=== PATIENT | female | born 1945 | race Caucasian/White ===

== ENCOUNTER → 2020-09-10 13:24 | Outpatient (BNVA) | payer MEDICARE, SELFPAY | PROVIDERS: PCP Internal Medicine; Visit Provider Anesthesiology | DX: M96.1 Postlaminectomy syndrome, not elsewhere classified (principal); M47.816 Spondylosis without myelopathy or radiculopathy, lumbar region; M51.36 Other intervertebral disc degeneration, lumbar region | CPT/HCPCS: 99212 ==

== ENCOUNTER → 2020-09-11 13:12 | Outpatient (BNVA) | payer MEDICARE, SELFPAY | PROVIDERS: PCP Internal Medicine; Referring Provider Internal Medicine; Visit Provider Nurse Practitioner Gerontology | DX: E11.9 Type 2 diabetes mellitus without complications (principal); I10 Essential (primary) hypertension; E78.5 Hyperlipidemia, unspecified; E66.9 Obesity, unspecified | CPT/HCPCS: 99212; Q3014 ==

== ENCOUNTER 2020-09-15 12:15 | Emergency (ER) | payer MEDICARE, SELFPAY ==
--- NOTE | 2020-09-15 13:35 | PC.NURSE ---
pt and family states that pt has an md appt at 1400 and they are leaving.
== END 2020-09-15 14:00 | disposition left against medical advice (07) ==
PROVIDERS: Emergency Provider Emergency Medicine; PCP Internal Medicine
DX: R11.10 Vomiting, unspecified (principal)
CPT/HCPCS: 99281

== ENCOUNTER → 2020-09-15 13:47 | Outpatient (REF) | payer MEDICARE, SELFPAY ==
--- NOTE | 2020-09-15 14:14 | CA_ITS ---
Transthoracic Echocardiogram Patient (Last, First, Middle): Jasmin Whitfield E Gender: Female Date of : 1945 Age: 74 Procedure Date: 09/15/2020 Procedure Type: Transthoracic Echocardiogram Location: OP Height: 149.86 cm Weight: 85.73 kg BSA: 1.80 m2 Heart Rate: bpm BP: 111 / 64 mmHg Staffing Rn: GAVIN Referring MD: Raffy Sorensen MD Product Lister: Louis Leahy MD Symptoms: NONRHEMATIC AORTIC VALVE STENOSIS Study Quality: Good ECG Rhythm: Sinus Conclusions: - 1. Normal LV systolic function with mild LVH with impaired relaxation filling pattern with increased filling pressures 2. Mildly dilated left atrium 3. Moderate to severe aortic stenosis with mean gradient of 26 mm Hg, underestimated compared to prior study 4. Severe mitral calcification 5. Normal RV systolic pressure 6. No pericardial effusion Findings Left Ventricle Normal left ventricular size and systolic function. There is mildly increased left ventricular wall thickness. The visually estimated ejection fraction is between 60-65%. Spectral Doppler is indicative of an impaired relaxation filling pattern. Elevated filling pressures. E/E prime ratio is >15, consistent with elevated filling pressures. Right Ventricle Normal right ventricular cavity size and systolic function. Atria The left atrium is mildly dilated. There is no evidence of interatrial shunt. The right atrium is normal in size. Aortic Valve There is mild calcification of the aortic valve. There is moderate thickening of the aortic valve. There is moderate to severe aortic valve stenosis. The mean gradient is 27 mmHg. The aortic valve area is 1.19 cm2. There is mild aortic valve regurgitation. Mitral Valve There is moderate anterior and posterior mitral leaflet thickening. There is severe mitral annular calcification. There is trace mitral valve regurgitation. There is no mitral valve stenosis. Pulmonic Valve The pulmonic valve was not well visualized. There is trace pulmonic valve regurgitation. Tricuspid Valve Normal tricuspid valve structure. There is mild tricuspid valve regurgitation. The right ventricular systolic pressure is normal. There is no evidence of pulmonary hypertension. Great Vessels All visible segments of the aorta are normal in size. The pulmonary artery was not well visualized. Venous The inferior vena cava is normal in size and collapses greater than 50% with inspiration. Pericardium/Pleural There is no evidence of pericardial effusion. Prior Study Comparison No significant change compared to prior study dated: 04/16/2020. Measurements 2D Linear Measurements IVSd: 1.24 0.6-0.9/0.6-1.0 cm LVIDd: 4.52 3.9-5.3/4.2-5.9 cm LVIDd Index: 2.51 2.4-3.2/2.2-3.1 cm/m2 LVIDs: 2.97 2.0-3.6 cm LVPWd: 1.22 0.7-1.1 cm Ao Root: 2.80 2.1-3.5 cm LA Diam: 3.70 2.7-3.8/3.0-4.0 cm LAIDs Index: 2.06 1.5-2.3 cm/m2 LV Mass: 257.63 67-162/88-224 g LV Mass Index: 143.13 43-95/49-115 g/m2 LVOT Diam: 2.00 3.0+(-)1.3 cm 2D Systolic Function EF 4C: 66.10 >55% Mitral Valve MV Pk E: 1.09 MV PK A: 1.34 MV Decel Time: 254.00 E/A: 0.80 E'Lateral: 7.54 E'Medial: 6.38 E/E' Med: 17.10 E/E' Lat: 14.50 PHT: 74.00 MVA PHT: 2.97 Decel [place]: 4.29 Aortic Valve AoV Pk Bimal: 3.75 AoV Mn Bimal: 2.37 AoV VTI: 0.83 AoV Pk Grad: 56.00 Aov Mn Grad: 27.00 EDDIE Cont.VTI: 1.19 AI Pk Bimal: 4.17 AI [place]: 2.55 LVOT LVOT Pk Bimal: 1.32 LVOT Mn Bimal: 0.90 LVOT VTI: 0.34 LVOT Pk Grad: 7.00 LVOT Mn Grad: 4.00 LVOT Diam: 2.00 LVOT Area: 3.14 Diastolic Function MV Pk E: 1.09 MV Pk A: 1.34 E/A: 0.80 E'Medial: 6.38 E/E' Med: 17.10 E' Laterial: 7.54 E/E' Lat: 14.50 Tricuspid Valve TR Pk Bimal: 2.29 TR Pk Grad: 29.00 RA Press: 3.00 RVSP: 32.00 Great Vessels Aorta Ao Root-2D: 2.80 2.0-3.7 cm Ao Asc: 3.10 2.1-3.4 cm Updated in Other Vendor System with Status of Final Louis Leahy MD electronically signed on 09/16/2020 11:37:35 AM with status of Final
[2020-09-15 15:01] LABS: Estimated Average Glucose 143 mg/dL; Hemoglobin A1c % 6.6 %
[2020-09-22 19:09] LABS: Fructosamine 275 umol/L (205-285)
== END ==
LOC: HO.CARD 13:47
PROVIDERS: Absent Provider Nurse Practitioner Gerontology; PCP Internal Medicine; Visit Provider Internal Medicine
DX: E11.9 Type 2 diabetes mellitus without complications (principal); I35.0 Nonrheumatic aortic (valve) stenosis
CPT/HCPCS: 82985; 83036; 93306

== ENCOUNTER → 2020-10-22 10:14 | Outpatient (BNVA) | payer MEDICARE, SELFPAY | PROVIDERS: PCP Internal Medicine; Visit Provider Nurse Practitioner | DX: K90.89 Other intestinal malabsorption (principal); K63.5 Polyp of colon; K62.5 Hemorrhage of anus and rectum | CPT/HCPCS: Q3014 ==

== ENCOUNTER → 2020-11-05 13:39 | Outpatient (BNVA) | payer MEDICARE, SELFPAY | PROVIDERS: PCP Internal Medicine; Visit Provider Internal Medicine | DX: R07.2 Precordial pain (principal); I35.0 Nonrheumatic aortic (valve) stenosis; I10 Essential (primary) hypertension; E11.9 Type 2 diabetes mellitus without complications | CPT/HCPCS: 93005; 99212 ==

== ENCOUNTER → 2020-11-19 09:59 | Outpatient (REF) | payer MEDICARE, SELFPAY ==
--- NOTE | 2020-11-19 | NM_ITS ---
Lexiscan Myocardial perfusion study Indication: Chest pain, obesity, diabetes, hypertension, assess for coronary disease and ischemia Technique: The patient was brought in for a Lexiscan perfusion study on 11/19/2020 and was injected 0.4 mg of Lexiscan intravenously. Within a minute of this injection 30 mCi of sestamibi was given intravenously. Images were obtained using the SPECT gamma camera interlaced with the gating device. Images were obtained in supine position. Resting perfusion study was performed on 11/20/2020. Patient was administered 30 mCi of sestamibi intravenously at rest. Images were then obtained in supine position. Total DLP 105mGy-cm. Images were processed with the software and compared side to side in short axis, horizontal long axis and vertical long axis views. Findings: Raw acquisition was reviewed. The stress perfusion study showed no significant perfusion abnormality. Both uncorrected as well as CT attenuation corrected images were reviewed. The gated study shows normal LV systolic function with calculated LVEF of 71%. LV cavity is normal in size. The gated study shows normal wall thickening and contraction of segments. Resting study shows no significant perfusion abnormality. Gating at rest reveals normal wall motion with ejection fraction at 69%. The findings are consistent with no reversible or fixed perfusion abnormality. NM/NM yang perf SPECT rest & str Impression: 1. Myocardial perfusion imaging study shows likely normal myocardial perfusion. No definitive evidence of any ischemia or infarction. 2. Gated LVEF is 71% during stress and 69% during rest. 3. Transient ischemic dilatation not present. EKG component of the test reported separately.
--- NOTE | 2020-11-19 10:03 | CA_ITS ---
Acquisition Time: 2020-11-19 10:26:01 Total Exercise Time: 00:02:00 Test Indications: Dyspnea Medications: SEE H Protocol: LEXISCAN Max HR: 115 BPM 80% of Pred: 143 BPM Max BP: 128/060 mmHG Max Work Load: 1.0 METS Pharmacological stress test using Lexiscan, while sitting and kicking her legs. Pt tolerated well, denies any anginal sx. SX of SOB reversed with Aminophyline. EKG without any arrhythmias, non-diagnostic for ischemia. Nuclear images to follow. Normotensive response to medication. Test reviewed with Dr. Sorensen. Referred By: Raffy Sorensen Overread By: Toby Brooks
== END ==
LOC: HO.CARD 09:59
PROVIDERS: PCP Internal Medicine; Visit Provider Internal Medicine
DX: R07.2 Precordial pain (principal); I20.9 Angina pectoris, unspecified
CPT/HCPCS: 78452; 93017; A9500; J0280; J2785

== ENCOUNTER 2020-11-27 15:03 | Outpatient (REF) | payer MEDICARE, SELFPAY ==
[2020-11-27 15:50] LABS: MANUAL DIFF FLAG NO
[2020-11-27 15:55] LABS: Basophils Percent Auto 0.4 % (0-2); Eosinophils Absolute Auto 0.2 X10*3/uL (0.0-0.4); Eosinophils Percent Auto 2.4 % (0-4); Hematocrit 33.7 % (37-47); Hemoglobin 10.4 g/dl (12.0-16.0); Imm Gran Abs Auto 0.03 X10*3/uL (0.00-0.03); Imm Gran Pct Auto 0.3 % (0.0-0.4); Lymphocytes Absolute Auto 1.9 X10*3/uL (1.2-4.9); Lymphocytes Percent Auto 20.8 % (20-40); Mean Corpuscular HGB Conc 30.9 g/dl (31.0-35.0); Mean Corpuscular Hemoglobin 27.7 pg (27.0-33.0); Mean Corpuscular Volume 89.6 fL (80-98); Mean Platelet Volume 9.6 fL (9.4-12.3); Monocytes Absolute Auto 0.8 X10*3/uL (0.1-1.2); Monocytes Percent Auto 8.4 % (2-11); Neutrophils Absolute Auto 6.1 X10*3/uL (2.0-8.3); Neutrophils Percent Auto 67.7 % (45-73); Platelet Count 406 X10*3/uL (160-400); Red Blood Count 3.76 X10*6/uL (4.20-5.50); Red Cell Distribution Width 15.9 % (11.0-16.0)
[2020-11-27 16:06] LABS: Estimated Average Glucose 128 mg/dL; Hemoglobin A1c % 6.1 %
[2020-11-27 16:12] LABS: Calcium 9.4 mg/dL (8.4-10.2)
[2020-11-27 16:19] LABS: Alanine Aminotransferase 13 U/L (0-31); Albumin Level 4.1 g/dL (3.5-5.0); Alkaline Phosphatase 113 U/L (39-117); Anion Gap 12 (12-20); Aspartate Amino Transferase 14 U/L (5-31); Bilirubin Total 0.8 mg/dL (0.0-1.0); Blood Urea Nitrogen 20 mg/dL (9-16); Calcium 9.2 mg/dL (8.4-10.2); Carbon Dioxide 30 mmol/L (22-29); Chloride 102 mmol/L (96-108); Cholesterol 104 mg/dL; Estimated Glomerular Filt Rate 46; Glucose Fasting 166 mg/dL (60-99); HDL Cholesterol 41 mg/dL; LDL Cholesterol Calculated 38 mg/dl; Potassium 4.2 mmol/l (3.3-5.1); Sodium 140 mmol/L (135-145); Total Protein 6.7 g/dL (6.5-8.0); Triglycerides 125 mg/dL
[2020-11-27 16:28] LABS: Creatinine Urine 121.22 mg/dL; Microalbum/Creatinine Ratio Ur 12.3 ug/mg cr
== END 2020-11-27 15:04 | disposition home or self-care (01) ==
LOC: HO.LAB 15:03
PROVIDERS: Absent Provider Nurse Practitioner Family; PCP Internal Medicine; Visit Provider Internal Medicine Hypertension Specialist
DX: Z00.00 Encounter for general adult medical examination without abnormal findings (principal); I10 Essential (primary) hypertension; E11.9 Type 2 diabetes mellitus without complications; E78.5 Hyperlipidemia, unspecified
CPT/HCPCS: 36415; 80053; 80061; 82043; 82310; 83036; 85025

== ENCOUNTER → 2020-12-03 13:51 | Outpatient (BNVA) | payer MEDICARE, SELFPAY | PROVIDERS: PCP Internal Medicine; Visit Provider Nurse Practitioner | DX: Z76.89 Persons encountering health services in other specified circumstances (principal) | CPT/HCPCS: Q3014 ==

== ENCOUNTER → 2020-12-10 13:30 | Outpatient (BNVA) | payer MEDICARE, SELFPAY | PROVIDERS: PCP Internal Medicine; Visit Provider Anesthesiology | DX: M96.1 Postlaminectomy syndrome, not elsewhere classified (principal); M47.816 Spondylosis without myelopathy or radiculopathy, lumbar region; M51.36 Other intervertebral disc degeneration, lumbar region | CPT/HCPCS: 99212 ==

== ENCOUNTER → 2020-12-26 13:33 | Outpatient (BNVA) | payer MEDICARE, SELFPAY | PROVIDERS: PCP Internal Medicine; Visit Provider Nurse Practitioner | DX: Z76.89 Persons encountering health services in other specified circumstances (principal) | CPT/HCPCS: Q3014 ==

== ENCOUNTER → 2021-01-30 10:53 | Outpatient (BNVA) | payer MEDICARE, SELFPAY | PROVIDERS: PCP Internal Medicine; Visit Provider Nurse Practitioner | DX: R19.01 Right upper quadrant abdominal swelling, mass and lump (principal); K21.9 Gastro-esophageal reflux disease without esophagitis; K90.89 Other intestinal malabsorption | CPT/HCPCS: Q3014 ==

== ENCOUNTER 2021-02-12 08:49 | Outpatient (REF) | payer MEDICARE, SELFPAY ==
--- NOTE | ~2021-02-12 | US_ITS ---
EXAMINATION: US ABDOMEN COMPLETE CLINICAL INFORMATION: R19.01 - Right upper quadrant abdominal swelling, mass and lump. COMPARISON: Renal ultrasound 06/20/2018, CT abdomen and pelvis noncontrast 06/16/2018 TECHNIQUE: Real-time imaging of the abdominal viscera. FINDINGS: PANCREAS: The pancreas is obscured by bowel gas and not imaged. ABDOMINAL AORTA: The bowel gas obscures the distal abdominal aorta and portion of mid abdominal aorta. INFERIOR VENA CAVA: Visualized portions are normal. LIVER: Liver is normal in size and smooth in contour. The hepatic parenchymal echogenicity is mildly increased consistent with hepatic steatosis. There is no hepatic parenchymal lesion or intrahepatic ductal dilatation. Color Doppler shows portal flow towards the liver. GALLBLADDER: Surgically absent. COMMON BILE DUCT: Within limits of normal caliber for postcholecystectomy patient, 1.0 cm. No visible ductal calculus or wall thickening. RIGHT KIDNEY: Normal. No hydronephrosis. No renal calculi or focal parenchymal lesions. The kidney measures 9.8 cm in maximum dimension. LEFT KIDNEY: Normal. No hydronephrosis. No renal calculi or focal parenchymal lesions. The kidney measures 10.2 cm in maximum dimension. SPLEEN: Normal. The spleen measures 8.8 cm in maximum dimension. FREE FLUID: There is mild ascites present in the left and right lower quadrant. US/US abdomen complete IMPRESSION: 1. Mild ascites lower quadrant. 2. Prior cholecystectomy. No ductal dilatation. 3. Mild hepatic steatosis. Portal flow towards the liver. Spleen normal in size, 8.8 cm. 4. Bowel gas obscures pancreas and portions of abdominal aorta.
--- NOTE | ~2021-02-12 | XR_ITS ---
EXAMINATION: XR FOOT, RIGHT CLINICAL INFORMATION: Pain in the right toes COMPARISON: None TECHNIQUE: AP, lateral, and oblique views of the right foot. FINDINGS: Osteopenia. No fracture or dislocation. There is significant joint space narrowing at the first metatarsophalangeal joint with flattening of the metatarsal head and base of the first digit proximal phalanx. There is osteophyte formation with sclerosis. There is prominent hypertrophic spurring of the plantar aponeurosis and Achilles insertion to the calcaneus. No ankle joint effusion. Vascular calcifications are noted. XR/XR foot RT 2V IMPRESSION: Severe degenerative changes at the first metatarsophalangeal joint.
== END 2021-02-12 08:50 | disposition home or self-care (01) ==
LOC: HO.US 08:49
PROVIDERS: Absent Provider Internal Medicine; PCP Internal Medicine; Visit Provider Physical Medicine & Rehabilitation
DX: R19.01 Right upper quadrant abdominal swelling, mass and lump (principal); M79.674 Pain in right toe(s)
CPT/HCPCS: 73620; 76700

== ENCOUNTER 2021-02-18 21:06 | Emergency (ER) | payer MEDICARE, SELFPAY ==
--- NOTE | ~2021-02-18 | CT_ITS ---
EXAMINATION: CT ABDOMEN AND PELVIS WITHOUT CONTRAST CLINICAL INFORMATION: Abdominal pain. COMPARISON: 06/16/2018. TECHNIQUE: Contiguous axial thin section helical images of the abdomen and pelvis were performed without oral or IV contrast. The data set was reformatted in the coronal and sagittal planes and reviewed on an independent workstation. DLP: 799 mGy-cm. FINDINGS: The visualized lung bases are clear. The visualized portions of the heart are unremarkable. There is a small hiatal hernia. The liver is of normal size and attenuation without focal lesions nor intrahepatic biliary ductal dilation. The patient is status post cholecystectomy. Surgical clips are present. There is a small amount of free fluid about the inferior aspect of the right lobe of the liver. The spleen, pancreas, adrenal glands are unremarkable. Both kidneys are of normal size and attenuation without hydronephrosis or nephrolithiasis. There is a moderate amount of free fluid within the left upper quadrant extending into the left paracolic gutter. There is a small amount of free fluid within the right paracolic gutter and right lower quadrant. There is neither mesenteric nor retroperitoneal lymphadenopathy. There is a fat and bowel containing ventral hernia without demonstrable obstruction. There is sigmoid diverticulosis without evidence of diverticulitis. Otherwise, unremarkable unopacified loops of small and large bowel are identified. There is a large amount of pelvic free fluid. The urinary bladder is unremarkable. Posterior to the urinary bladder, there is an oval low-attenuation focus best demonstrated on axial image 66/95 and sagittal reconstruction 74/142. This measures approximately 8.0 x 8.0 x 10.2 cm and is of fluid attenuation a smaller cystic lesion was noted in the left adnexa on the prior exam and described in the report. There is neither pelvic nor inguinal lymphadenopathy. Bone windows: Neither sclerotic nor lytic bone lesions are identified. CT/CT abdomen pelvis wo con IMPRESSION: Moderate amount of free fluid within the abdomen and a large amount of free fluid within the pelvis. In addition, there is an approximately 10.2 cm fluid attenuation cystic focus noted within the pelvis. It is uncertain as to whether this corresponds to the smaller cystic lesion identified on the prior exam. The etiology of the fluid is uncertain, though likely related to the cystic pelvic lesion. Recommendation is for correlation with pelvic MRI for further tissue characterization. Fat and bowel containing ventral hernia without associated obstruction. Diverticulosis without evidence of diverticulitis. Automated exposure control (Care Dose) Adjustment of the mA and/or kv according to patient size (this includes techniques or standardized protocols for targeted exams where dose is matched to indication / reason for exam; i.e. extremities or head).
[2021-02-18 21:48] VITALS: BP 148/66; PULSE 80; RESP 18; TEMP 36.8; O2SAT 99; BMI 36.9
--- NOTE | 2021-02-19 01:08 | ED.GENADULT ---
HPI - General Adult General Chief complaint: Abdominal Pain Stated complaint: abnormal labs Time Seen by Provider: 02/19/21 00:38 Source: patient, family and interpreter for the deaf Mode of arrival: ambulatory Limitations: other (poor historians) History of Present Illness HPI narrative: 75 yo female with abdominal pain and nausea, diarrhea with weight loss but unknown weight loss x 1 month, sent by PCP given US on 02/12 ?ascites as the reason MD complaint: abnormal US, abdominal pain Onset (ago): month(s) (1) Location: abdomen Radiation: non-radiation Severity: moderate Quality: aching, dull and constant Pain Consistency: constant Relieving factors: none Exacerbating factors: none Associated symptoms: loss of appetite, malaise and nausea/vomiting Treatments prior to arrival: none Related Data Home Medications Medication Instructions Recorded Confirmed blood sugar diagnostic #10 ea 09/11/20 01/28/21 furosemide 20 mg tablet 20 mg PO DAILY 09/11/20 01/28/21 lancets #100 ea 09/11/20 01/28/21 loperamide 2 mg capsule mg PO 09/11/20 01/28/21 sitagliptin 50 mg-metformin ER 2 tab PO BEDTIME 09/11/20 01/28/21 1,000 mg tablet,extended release 24h mp glipizide 5 mg tablet 5 mg PO DAILY 09/30/20 01/28/21 losartan 100 mg tablet 100 mg PO DAILY 09/30/20 01/28/21 simethicone 180 mg capsule 180 mg PO .Q.i.d. PRN cap 10/22/20 01/28/21 Previous Rx's Medication Instructions Recorded empagliflozin 25 mg tablet 25 mg PO QAM #30 tab 08/18/20 dulaglutide 0.75 mg/0.5 mL 0.75 mg SUBCUT QWEEK 28 Days #2 ml 09/26/20 subcutaneous pen injector ibuprofen 800 mg tablet 800 mg PO BID 15 Days #30 tab 09/30/20 cyclobenzaprine 10 mg tablet 10 mg PO BEDTIME #30 tab 11/11/20 clotrimazole-betamethasone 1 1 appl TOPICAL BID 14 Days #15 g 11/26/20 %-0.05 % topical cream sennosides 8.6 mg capsule 17.2 mg PO BEDTIME PRN 30 Days #60 12/03/20 cap hydrocortisone 2.5 % topical cream [address] BID PRN 30 Days #30 g 12/26/20 with perineal applicator methylcellulose (laxative) 500 mg 1,000 mg PO DAILY 30 Days #60 tab 12/26/20 tablet omeprazole 20 mg capsule,delayed 20 mg PO DAILY #90 cap 12/26/20 release ferrous sulfate 325 mg (65 mg 325 mg PO BID #60 tab 01/05/21 iron) tablet hydrochlorothiazide 25 mg tablet 25 mg PO QAM #90 tab 01/24/21 amlodipine 10 mg tablet 10 mg PO DAILY #90 tab 01/27/21 metoprolol succinate 100 mg 100 mg PO DAILY #90 tab 01/27/21 tablet,extended release 24 hr atorvastatin 40 mg tablet 40 mg PO BEDTIME 90 Days #90 tab 01/28/21 sucralfate 1 gram tablet 2 g PO BID 30 Days #120 tab 01/30/21 hydrocodone-acetaminophen 1 tab PO Q6H PRN #12 tab 02/19/21 ondansetron 4 mg PO Q8H PRN #20 tab 02/19/21 Allergies Allergy/AdvReac Type Severity Reaction Status Date / Time iodine Allergy Severe Anaphylaxis Verified 01/30/21 11:04 metformin Allergy Intermediate Rash Verified 01/30/21 11:04 aspirin Allergy Mild rash Verified 01/30/21 11:04 gabapentin AdvReac Intermediate visual Verified 01/30/21 11:04 distubance and sleepiness Review of Systems Review of Systems: Constitutional : pos Weight loss, No Fever, No Chills ENT/Mouth : No sore throat, No Rhinorrhea Eyes: No Swelling, No Redness Cardiovascular : No Chest Pain, No SOB, NoEdema Respiratory : No Cough, No Sputum, No Wheezing Gastrointestinal : Positive Nausea, no Vomiting, positive Diarrhea, positive abdominal Pain, No Hematochezia, No Melena Genitourinary : No Dysuria, No Urinary Frequency, No Hematuria, No Urgency Musculoskeletal : No joint pain, No Myalgias, No Joint Swelling Skin : No Skin Lesions, No rash Neuro : No Weakness, No Numbness, No Dizziness, No Headache Psych : No Anxiety/Panic, No Depression Heme/Lymph: No Bruising, No Lymphadenopathy Endocrine : No Polyuria, No Polydipsia All other systems reviewed and are negative. [facility] Past Medical History Attestation statement: The following information was validated with the patient. 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 Mother No problems noted. Paternal Grandmother Cancer Paternal Aunt Cancer Family/Other Cancer Daughter Cancer History of open heart surgery Social History Social History Household Members: None Alcohol intake: never Smoking Status: Never smoker Use of substances other than those prescribed or required for medical reasons: No Advance Directives: No Current occupational status: unemployed Physical Exam Vital Signs: Vital Signs: Last Vital Signs Temp 98.4 F 02/19/21 02:00 Pulse 77 02/19/21 02:00 Resp 16 02/19/21 02:00 BP 134/46 L 02/19/21 02:00 Pulse Ox 99 02/19/21 02:00 Body Mass Index 36.9 Appearance: Alert. Oriented X3. No acute distress. Eyes: Pupils equal, round and reactive to light. ENT: Pharynx normal. Neck: Normal inspection. Neck supple. CVS: Normal heart rate and rhythm. Pulses normal. Respiratory: No respiratory distress. Breath sounds normal. Abdomen: Soft and moderate ttp in RUQ, has midline nonmobile mass in area above umibilicus Skin: Skin warm and dry. Normal skin color. Normal skin turgor. Extremities: No lower extremity edema. No calf ttp Neuro: Oriented X 3. No motor deficit. No sensory deficit. Course Course Course Narrative: discussed with daughter and patinet about findings and offered admission - aware I am concerned for malignancy, the patient refuses admission, she wants to follow up outpatient at this time Medical Decision Making MDM Narrative Medical decision making narrative: 75 yo female with depression, GERD, DM with abdominal pain x 1 month here with upper abdominal pain nausea/diarrhea and weight loss with ?abnormal US on 02/12 at this time given her symptoms needs more of an evaluation will obtain labs, CT scan for mass, IV morphine for pain Lab Data Result diagrams: 02/19/21 01:32 02/19/21 01:32 Labs: Lab Results 02/19/21 02/19/21 02/19/21 Range/Units 01:32 01:32 01:32 WBC (4.8-10.8) X10*3/uL RBC (4.20-5.50) X10*6/uL Hgb (12.0-16.0) g/dl Hct (37-47) % MCV (80-98) fL MCH (27.0-33.0) pg MCHC (31.0-35.0) g/dl RDW (11.0-16.0) % Plt Count (160-400) X10*3/uL MPV (9.4-12.3) fL Immature Gran % (Auto) (0.0-0.4) % Neut % (Auto) (45-73) % Lymph % (Auto) (20-40) % [place] % (Auto) (2-11) % Eos % (Auto) (0-4) % Baso % (Auto) (0-2) % Lymph # (Auto) (1.2-4.9) X10*3/uL [place] # (Auto) (0.1-1.2) X10*3/uL Eos # (Auto) (0.0-0.4) X10*3/uL Baso # (Auto) (0.0-0.2) X10*3/uL Abs Immat Gran (auto) (0.00-0.03) X10*3/uL Absolute Neuts (auto) (2.0-8.3) X10*3/uL Absolute Nucleated RBC (0.0-0.012) X10*3/uL Nucleated RBC % (auto) (0.0-0.2) /100WBC PT 13.8 H (10.8-13.0) SEC INR 1.2 H (0.9-1.1) APTT 33.9 (24.1-38.0) SEC Sodium 141 (135-145) mmol/L Potassium 4.4 (3.3-5.1) mmol/L Chloride 105 (96-108) mmol/L Carbon Dioxide 22 (22-29) mmol/L Anion Gap 18 (12-20) BUN 21 H (9-16) mg/dL Creatinine 1.15 (0.5-1.4) mg/dL Estim Creat Clear Calc 39.8 Estimated GFR 46 Random Glucose 126 H (60-115) mg/dL Calcium 9.6 (8.4-10.2) mg/dL Magnesium 2.5 (1.6-2.6) mg/dL Total Bilirubin 0.9 (0.0-1.0) mg/dL Direct Bilirubin 0.3 (0.0-0.5) mg/dL AST 17 (5-31) U/L ALT 11 (0-31) U/L Alkaline Phosphatase 105 (39-117) U/L Total Protein 7.3 (6.5-8.0) g/dL Albumin 4.1 (3.5-5.0) g/dL Lipase 33 (8-78) U/L Urine Color Urine Appearance Urine pH (5.0-8.0) Ur Specific [place] (1.005-1.025) Urine Protein (NEG-TRACE) MG/DL Urine Glucose (UA) (NEG) MG/DL Urine Ketones (NEG) MG/DL Urine Blood (NEG) Urine Nitrite (NEG) Ur Leukocyte Esterase (NEG) 02/19/21 02/19/21 Range/Units 01:32 02:31 WBC 10.5 (4.8-10.8) X10*3/uL RBC 3.94 L (4.20-5.50) X10*6/uL Hgb 10.3 L (12.0-16.0) g/dl Hct 34.0 L (37-47) % MCV 86.3 (80-98) fL MCH 26.1 L (27.0-33.0) pg MCHC 30.3 L (31.0-35.0) g/dl RDW 14.6 (11.0-16.0) % Plt Count 542 H D (160-400) X10*3/uL MPV 9.8 (9.4-12.3) fL Immature Gran % (Auto) 0.4 (0.0-0.4) % Neut % (Auto) 65.6 (45-73) % Lymph % (Auto) 21.9 (20-40) % [place] % (Auto) 9.4 (2-11) % Eos % (Auto) 2.4 (0-4) % Baso % (Auto) 0.3 (0-2) % Lymph # (Auto) 2.3 (1.2-4.9) X10*3/uL [place] # (Auto) 1.0 (0.1-1.2) X10*3/uL Eos # (Auto) 0.3 (0.0-0.4) X10*3/uL Baso # (Auto) 0.0 (0.0-0.2) X10*3/uL Abs Immat Gran (auto) 0.04 H (0.00-0.03) X10*3/uL Absolute Neuts (auto) 6.9 (2.0-8.3) X10*3/uL Absolute Nucleated RBC 0.000 (0.0-0.012) X10*3/uL Nucleated RBC % (auto) 0.0 (0.0-0.2) /100WBC PT (10.8-13.0) SEC INR (0.9-1.1) APTT (24.1-38.0) SEC Sodium (135-145) mmol/L Potassium (3.3-5.1) mmol/L Chloride (96-108) mmol/L Carbon Dioxide (22-29) mmol/L Anion Gap (12-20) BUN (9-16) mg/dL Creatinine (0.5-1.4) mg/dL Estim Creat Clear Calc Estimated GFR Random Glucose (60-115) mg/dL Calcium (8.4-10.2) mg/dL Magnesium (1.6-2.6) mg/dL Total Bilirubin (0.0-1.0) mg/dL Direct Bilirubin (0.0-0.5) mg/dL AST (5-31) U/L ALT (0-31) U/L Alkaline Phosphatase (39-117) U/L Total Protein (6.5-8.0) g/dL Albumin (3.5-5.0) g/dL Lipase (8-78) U/L Urine Color YELLOW Urine Appearance CLEAR Urine pH 6.0 (5.0-8.0) Ur Specific [place] 1.020 (1.005-1.025) Urine Protein NEG (NEG-TRACE) MG/DL Urine Glucose (UA) 500 H (NEG) MG/DL Urine Ketones NEG (NEG) MG/DL Urine Blood NEG (NEG) Urine Nitrite NEG (NEG) Ur Leukocyte Esterase NEG (NEG) Discharge Plan Discharge Clinical Impression: Abdominal or pelvic swelling, mass, or lump, other specified site Patient Disposition: Home, Self-Care Instructions: Abdominal Pain (ED) Additional Instructions: return to ED for any worsening symptoms or concerns THIS IS VERY SERIOUS AND COULD BE CANCER, PLEASE SEE YOUR DOCTOR, YOU WERE OFFERED ADMISSION BUT DECLINED CT SCAN RESULTS Moderate amount of free fluid within the abdomen and a large amount of free fluid within the pelvis. In addition, there is an approximately 10.2 cm fluid attenuation cystic focus noted within the pelvis. It is uncertain as to whether this corresponds to the smaller cystic lesion identified on the prior exam. The etiology of the fluid is uncertain, though likely related to the cystic pelvic lesion. Recommendation is for correlation with pelvic MRI for further tissue characterization. Fat and bowel containing ventral hernia without associated obstruction. Diverticulosis without evidence of diverticulitis. Prescriptions: New hydrocodone-acetaminophen 5-325 mg tablet 1 tab PO Q6H PRN (Reason: pain) Qty: 12 RF: 0 ondansetron 4 mg tablet,disintegrating 4 mg PO Q8H PRN (Reason: nausea and vomiting) Qty: 20 RF: 0 No Action empagliflozin [Jardiance] 25 mg tablet 25 mg PO QAM Qty: 30 RF: 6 dulaglutide 0.75 mg/0.5 mL pen injector 0.75 mg subcut QWEEK 28 Days Qty: 2 RF: 3 cyclobenzaprine 10 mg tablet 10 mg PO BEDTIME Qty: 30 RF: 0 ferrous sulfate 325 mg (65 mg iron) tablet 325 mg PO BID Qty: 60 RF: 0 hydrochlorothiazide 25 mg tablet 25 mg PO QAM Qty: 90 RF: 1 amlodipine 10 mg tablet 10 mg PO DAILY Qty: 90 RF: 1 metoprolol succinate 100 mg tablet extended release 24 hr 100 mg PO DAILY Qty: 90 RF: 1 losartan 100 mg tablet 100 mg PO DAILY RF: 0 glipizide 5 mg tablet 5 mg PO DAILY RF: 0 ibuprofen 800 mg tablet 800 mg PO BID 15 Days Qty: 30 RF: 0 clotrimazole-betamethasone 1-0.05 % cream 1 appl topical BID 14 Days Qty: 15 RF: 0 atorvastatin 40 mg tablet 40 mg PO BEDTIME 90 Days Qty: 90 RF: 3 simethicone [Gas Relief (simethicone)] 180 mg capsule 180 mg PO .Q.i.d. PRNRF: 0 sucralfate [Carafate] 1 gram tablet 2 g PO BID 30 Days Qty: 120 RF: 6 loperamide 2 mg capsule PO RF: 0 Janumet XR 50-1,000 mg tablet, ER multiphase 24 hr 2 tab PO BEDTIME RF: 0 (DME) lancets Misc See Rx Instructions ea .ROUTE .MEDSUPPLY Qty: 100 RF: 0 (DME) OneTouch Ultra Blue Test Strip Strip See Rx Instructions ea .ROUTE DAILY Qty: 10 RF: 0 furosemide 20 mg tablet 20 mg PO DAILY RF: 0 senna 8.6 mg capsule 17.2 mg PO BEDTIME PRN (Reason: constipation) 30 Days Qty: 60 RF: 3 Citrucel 500 mg tablet 1,000 mg PO DAILY 30 Days Qty: 60 RF: 6 hydrocortisone [Anusol-HC] 2.5 % cream with perineal applicator [address] BID PRN (Reason: hemorrhoids) 30 Days Qty: 30 RF: 6 omeprazole 20 mg capsule,delayed release(DR/EC) 20 mg PO DAILY Qty: 90 RF: 6 Referrals: Nelli Richardson MD [Primary Care Provider] - 1 day Print Language: Greek
[2021-02-19] MEDS: ondansetron HCL 4 MG/2 ML VIAL IVPUSH (01:33)
[2021-02-19] MEDS: Morphine Sulfate 4 MG/ML CARTRIDGE IVPUSH (01:34)
[2021-02-19 01:46] LABS: INTERNATIONAL NORM RATIO 1.2 (0.9-1.1); Prothrombin Time 13.8 SEC (10.8-13.0)
[2021-02-19 01:49] LABS: Partial Thromboplastin Time 33.9 SEC (24.1-38.0)
[2021-02-19 02:00] VITALS: BP 134/46; PULSE 77; RESP 16; TEMP 36.9; O2SAT 99
[2021-02-19 02:03] LABS: Alanine Aminotransferase 11 U/L (0-31); Albumin Level 4.1 g/dL (3.5-5.0); Alkaline Phosphatase 105 U/L (39-117); Aspartate Amino Transferase 17 U/L (5-31); Bilirubin Direct 0.3 mg/dL (0.0-0.5); Bilirubin Total 0.9 mg/dL (0.0-1.0); Lipase 33 U/L (8-78); Magnesium 2.5 mg/dL (1.6-2.6); Total Protein 7.3 g/dL (6.5-8.0)
[2021-02-19 02:38] LABS: Anion Gap 18 (12-20); Blood Urea Nitrogen 21 mg/dL (9-16); Calcium 9.6 mg/dL (8.4-10.2); Carbon Dioxide 22 mmol/L (22-29); Chloride 105 mmol/L (96-108); Creatinine Clr Calc Pharmacy 39.8; Estimated Glomerular Filt Rate 46; Glucose Random 126 mg/dL (60-115); Potassium 4.4 mmol/L (3.3-5.1); Sodium 141 mmol/L (135-145)
[2021-02-19 02:49] LABS: Glucose Urine UA 500 MG/DL (NEG); Leukocyte Esterase Urine NEG (NEG); Nitrite Urine NEG (NEG); Urine Blood NEG (NEG); Urine Ketones NEG (NEG); Urine Protein NEG (NEG-TRACE)
[2021-02-19 02:57] LABS: Appearance Urine CLEAR; Color Urine YELLOW
[2021-02-19 03:08] LABS: Basophils Percent Auto 0.3 % (0-2); Eosinophils Absolute Auto 0.3 X10*3/uL (0.0-0.4); Eosinophils Percent Auto 2.4 % (0-4); Hemoglobin 10.3 g/dl (12.0-16.0); Imm Gran Abs Auto 0.04 X10*3/uL (0.00-0.03); Imm Gran Pct Auto 0.4 % (0.0-0.4); Lymphocytes Absolute Auto 2.3 X10*3/uL (1.2-4.9); Lymphocytes Percent Auto 21.9 % (20-40); MANUAL DIFF FLAG NO; Mean Corpuscular HGB Conc 30.3 g/dl (31.0-35.0); Mean Corpuscular Hemoglobin 26.1 pg (27.0-33.0); Mean Corpuscular Volume 86.3 fL (80-98); Mean Platelet Volume 9.8 fL (9.4-12.3); Monocytes Percent Auto 9.4 % (2-11); Neutrophils Absolute Auto 6.9 X10*3/uL (2.0-8.3); Neutrophils Percent Auto 65.6 % (45-73); Platelet Count 542 X10*3/uL (160-400); Red Blood Count 3.94 X10*6/uL (4.20-5.50); Red Cell Distribution Width 14.6 % (11.0-16.0); White Blood Count 10.5 X10*3/uL (4.8-10.8)
== END 2021-02-19 03:38 | disposition home or self-care (01) ==
PROVIDERS: Emergency Provider Emergency Medicine; PCP Internal Medicine
DX: R10.9 Unspecified abdominal pain (principal); R11.2 Nausea with vomiting, unspecified; R19.7 Diarrhea, unspecified; Z79.899 Other long term (current) drug therapy
CPT/HCPCS: 36415; 74176; 80048; 80076; 81003; 83690; 83735; 85025; 85610; 85730; 96374; 96375; 99284; J2270; J2405

== ENCOUNTER 2021-02-19 10:29 | Emergency (ER) | payer MEDICARE, SELFPAY ==
--- NOTE | ~2021-02-19 | CT_ITS ---
EXAMINATION: CT CHEST WITHOUT CONTRAST CLINICAL INFORMATION: Abdominal pain. Abdominal and pelvic ascites, possible pelvic mass. Assess for intrathoracic disease/mass. COMPARISON: CT abdomen and pelvis 02/19/2021, ultrasound abdomen 02/12/2021. TECHNIQUE: Multidetector volumetric CT imaging of the chest is performed without contrast. Axial MIP volume rendering provided. Sagittal and coronal reformatted images were obtained. This CT examination was performed using dose optimization techniques as appropriate, variously including the following: *Automated exposure control *Adjustment of mA and/or kV according to patient size (this includes techniques or standardized protocols for targeted exams where dose is matched to indication/reason for exam; i.e. extremities or head) *Use of iterative reconstruction technique DLP: 344 mGy-cm FINDINGS: LUNGS: The central airways are clear and there is no endobronchial lesion or bronchiectasis. There is no lobar or segmental airspace consolidation or infectious groundglass opacities. There is no mass. There are a few scattered tiny nodules under 4 mm as follows: -Left pleural-based posterior lower lobe series 6/301. -Right posterior upper lobe series 6/123. -Right posterior upper lobe series 6/139. -Right posterior lateral lower lobe series 6/282. There are also incidental fissural-based nodularity likely intraparenchymal nodes under 4 mm on the right, series 6 images 166, 206, and 233. MEDIASTINUM: No hilar or mediastinal mass or adenopathy. Coronary artery atherosclerotic calcifications. No pericardial effusion. PLEURA: There is no pleural effusion. No pleural mass or thickening. AXILLA: No lymphadenopathy. UPPER ABDOMEN: Upper abdominal ascites. Prior cholecystectomy. OSSEOUS STRUCTURES: Unremarkable. CT/CT chest wo con IMPRESSION: 1. Scattered small pulmonary nodularity under 4 mm. No lymphadenopathy or effusion. 2. If there is no malignancy, then Fleischner guidelines may be followed (below). Otherwise, in the presence of history malignancy, the pulmonary nodules may be reassessed again in 3 months with non-contrast CT chest. Reference: The Fleischner Society recommendations for management of incidentally detected pulmonary nodules in adults age 35 and greater are based on average nodule size and patient risk category. The recommendations do not apply to lung cancer screening, patients with immunosuppression, or patients with known primary cancer. Single solid nodule average size < 6 mm: Low Risk Patient: No routine follow-up. High Risk Patient: Optional CT at 12 months. Certain patients at high risk with suspicious nodule morphology, upper lobe location, or both may warrant 12-month follow-up.
[2021-02-19 11:04] VITALS: BP 132/59; PULSE 75; RESP 18; TEMP 36.8; O2SAT 97; BMI 36.3
[2021-02-19 12:51] VITALS: BP 122/57; PULSE 70; RESP 16; TEMP 36.7
--- NOTE | 2021-02-19 13:05 | PC.NURSE ---
PT SEEN IN THE ER EARLIER THIS MORNING. REPORTS GI DRSuresh TOLD HER TO COME BACK TO THE HOSPITAL FOR FURTHER EVALUATION. PT ALERT AND ORIENTED, REPORTS ABDOMINAL PAIN THROUGHOUT WITH MORE TENDERNESS IN RIGHT LOWER QUADRANT, AND FEELINGS OF FULLNESS/BLOATING. BS ACTIVE X4. PT REPORTS NOT EATING/DRINKING X3DAYS AND HAVING WATERY STOOLS EACH TIME SHE HAS A BM. PT SEEN BY PA. KUMAR AT BEDSIDE. PLAN FOR ADMISSION
--- NOTE | 2021-02-19 13:08 | ED.ABDPAIN ---
HPI - Abdominal Pain General Chief Complaint: Abdominal Pain Stated Complaint: abd pain Time Seen by Provider: 02/19/21 12:36 Source: patient Mode of arrival: ambulatory History of Present Illness HPI narrative: 75-year-old female with a past medical history diabetes, depression, HTN, seen in our ED last night for abdominal pain/distension, nausea/diarrhea x1 mos with newly diagnosed abdomino-pelvic mass with ascites seen on CT abdomen pelvis last night presenting to the ED sent in by GI/PCP for further evaluation/workup. Admits symptoms unchanged from last night. Denies fever, chills, vomiting, dysuria/hematuria, CP/SOB MD elicited complaint: abdominal pain Related Data Home Medications Medication Instructions Recorded Confirmed blood sugar diagnostic #10 ea 09/11/20 01/28/21 furosemide 20 mg tablet 20 mg PO DAILY 09/11/20 01/28/21 lancets #100 ea 09/11/20 01/28/21 loperamide 2 mg capsule mg PO 09/11/20 01/28/21 sitagliptin 50 mg-metformin ER 2 tab PO BEDTIME 09/11/20 01/28/21 1,000 mg tablet,extended release 24h mp glipizide 5 mg tablet 5 mg PO DAILY 09/30/20 01/28/21 losartan 100 mg tablet 100 mg PO DAILY 09/30/20 01/28/21 simethicone 180 mg capsule 180 mg PO .Q.i.d. PRN cap 10/22/20 01/28/21 Previous Rx's Medication Instructions Recorded empagliflozin 25 mg tablet 25 mg PO QAM #30 tab 08/18/20 dulaglutide 0.75 mg/0.5 mL 0.75 mg SUBCUT QWEEK 28 Days #2 ml 09/26/20 subcutaneous pen injector ibuprofen 800 mg tablet 800 mg PO BID 15 Days #30 tab 09/30/20 cyclobenzaprine 10 mg tablet 10 mg PO BEDTIME #30 tab 11/11/20 clotrimazole-betamethasone 1 1 appl TOPICAL BID 14 Days #15 g 11/26/20 %-0.05 % topical cream sennosides 8.6 mg capsule 17.2 mg PO BEDTIME PRN 30 Days #60 12/03/20 cap hydrocortisone 2.5 % topical cream 1 appl MD BID PRN 30 Days #30 g 12/26/20 with perineal applicator methylcellulose (laxative) 500 mg 1,000 mg PO DAILY 30 Days #60 tab 12/26/20 tablet omeprazole 20 mg capsule,delayed 20 mg PO DAILY #90 cap 12/26/20 release ferrous sulfate 325 mg (65 mg 325 mg PO BID #60 tab 01/05/21 iron) tablet hydrochlorothiazide 25 mg tablet 25 mg PO QAM #90 tab 01/24/21 amlodipine 10 mg tablet 10 mg PO DAILY #90 tab 01/27/21 metoprolol succinate 100 mg 100 mg PO DAILY #90 tab 01/27/21 tablet,extended release 24 hr atorvastatin 40 mg tablet 40 mg PO BEDTIME 90 Days #90 tab 01/28/21 sucralfate 1 gram tablet 2 g PO BID 30 Days #120 tab 01/30/21 hydrocodone-acetaminophen 1 tab PO Q6H PRN #12 tab 02/19/21 ondansetron 4 mg PO Q8H PRN #20 tab 02/19/21 Allergies Allergy/AdvReac Type Severity Reaction Status Date / Time iodine Allergy Severe Anaphylaxis Verified 02/19/21 11:04 metformin Allergy Intermediate Rash Verified 02/19/21 11:04 aspirin Allergy Mild rash Verified 02/19/21 11:04 gabapentin AdvReac Intermediate visual Verified 02/19/21 11:04 distubance and sleepiness Review of Systems Review of Systems Constitutional: No Fever, No Chills Cardiovascular: No Chest Pain, No SOB Respiratory: No Cough Gastrointestinal: + Nausea, No Vomiting, + Diarrhea, No Constipation, + Abdominal pain Genitourinary: No Dysuria, No Urinary Frequency, No Hematuria Musculoskeletal: No joint pain, No Myalgias, No Joint Swelling Skin: No Skin Lesions, No rash Neuro: No Weakness, No Numbness, No Paresthesias, No Headache Yes all other systems are reviewed and are negative Physical Exam Vital Signs: Vital Signs: Last Vital Signs Temp 98.1 F 02/19/21 12:51 Pulse 71 02/19/21 14:46 Resp 16 02/19/21 14:46 BP 133/55 L 02/19/21 14:46 Pulse Ox 95 02/19/21 14:46 Body Mass Index 36.3 Const: General: cooperative, healthy appearing and no acute distress Orientation/consciousness: patient oriented x3 Limitations: no limitations HENMT: Head: Yes normal to inspection Ears: hearing grossly normal bilaterally General nose exam: Normal external nose present Face and sinus: Yes normal facial exam Eyes: General: appearance normal, both eyes and all related structures EOM: EOMs intact bilaterally Neck: Neck: Yes normal visual inspection and Yes no meningeal signs Resp: Effort & Inspection: normal respiratory effort Auscultation: no rales, no rhonchi and no wheezes Cardio: Rate: regular rate GI: Inspection: Yes normal to inspection Palpation (GI): Soft to palpation, Tenderness to palpation present (GI) (Palpable mass in right lower abdomen) in the RLQ, no guarding and not rigid : General: Yes no CVA tenderness Back/Spine/Pelvis: Back: no CVA tenderness Skin: Rashes: no rashes Wounds: no wounds Neuro: General: patient oriented x3 and no meningeal signs Gait exam (Neuro): Normal gait present Extrem: General: Yes normal to inspection, Yes no pedal edema and Yes no calf tenderness Course Course Course Narrative: -attempted to admit patient to our hospital however if this is gynecologic mass requiring Rn Licensed Practical/Onc we do not have those capabilities here, pelvic MRI recommended > however stat pelvic MRI unable to be done today, & this is deemed outpatient workup -spoke to OBGYN doctor Onelia who ordered outpatient MRI and will follow up on results, recommended adding on CA 125 level which will be drawn in the ED. Patient will then be referred to proper sub-specialist pending imaging results -Labs unchanged from this morning CT chest wo con IMPRESSION: 1. Scattered small pulmonary nodularity under 4 mm. No lymphadenopathy or effusion. 2. If there is no malignancy, then Fleischner guidelines may be followed (below). Otherwise, in the presence of history malignancy, the pulmonary nodules may be reassessed again in 3 months with non-contrast CT chest. >> results discussed with patient with director project management. Will obtain MRI outpatient and be follow-up with our OBGYN then referred to subspecialty as necessary MDM - Abdominal Pain MDM Narrative Medical decision making narrative: 75-year-old female with a past medical history diabetes, depression, HTN, seen in our ED last night for abdominal pain/distension, nausea/diarrhea x1 mos with newly diagnosed abdomino-pelvic mass with ascites seen on CT abdomen pelvis last night presenting to the ED sent in by GI/PCP for further evaluation/workup. On exam VSS, NAD/appearing, abdomen soft with right lower quadrant tenderness with palpable mass. Labs/imaging reviewed from early this morning. Will obtain repeat CBC/CMP, CT chest to rule out metastasis, and consult OBGYN Lab Data Result diagrams: 02/19/21 13:38 02/19/21 13:38 Labs: Lab Results 02/19/21 02/19/21 Range/Units 13:38 13:38 WBC 9.1 (4.8-10.8) X10*3/uL RBC 3.87 L (4.20-5.50) X10*6/uL Hgb 10.2 L (12.0-16.0) g/dl Hct 33.3 L (37-47) % MCV 86.0 (80-98) fL MCH 26.4 L (27.0-33.0) pg MCHC 30.6 L (31.0-35.0) g/dl RDW 14.7 (11.0-16.0) % Plt Count 505 H (160-400) X10*3/uL MPV 9.1 L (9.4-12.3) fL Immature Gran % (Auto) 0.3 (0.0-0.4) % Neut % (Auto) 73.1 H (45-73) % Lymph % (Auto) 15.5 L (20-40) % [place] % (Auto) 8.5 (2-11) % Eos % (Auto) 2.3 (0-4) % Baso % (Auto) 0.3 (0-2) % Lymph # (Auto) 1.4 (1.2-4.9) X10*3/uL [place] # (Auto) 0.8 (0.1-1.2) X10*3/uL Eos # (Auto) 0.2 (0.0-0.4) X10*3/uL Baso # (Auto) 0.0 (0.0-0.2) X10*3/uL Abs Immat Gran (auto) 0.03 (0.00-0.03) X10*3/uL Absolute Neuts (auto) 6.6 (2.0-8.3) X10*3/uL Absolute Nucleated RBC 0.000 (0.0-0.012) X10*3/uL Nucleated RBC % (auto) 0.0 (0.0-0.2) /100WBC Sodium 140 (135-145) mmol/L Potassium 4.5 (3.3-5.1) mmol/L Chloride 104 (96-108) mmol/L Carbon Dioxide 23 (22-29) mmol/L Anion Gap 18 (12-20) BUN 20 H (9-16) mg/dL Creatinine 1.13 (0.5-1.4) mg/dL Estim Creat Clear Calc 38.5 Estimated GFR 47 Random Glucose 107 (60-115) mg/dL Calcium 9.3 (8.4-10.2) mg/dL Discharge Plan Discharge Clinical Impression: Abdominal or pelvic swelling, mass, or lump, other specified site, Pulmonary nodules Patient Disposition: Home, Self-Care Instructions: Ascites (ED), Pulmonary Nodules (ED) Additional Instructions: You have a newly diagnosed abdominal pelvic mass which is suspected to be originating in her pelvis. You need an MRI, this will be scheduled for you, you will be contacted from [place] for scheduling. Once MRI is complete/results you will be referred to the proper subspecialists. If you develop fever, chills, nausea/vomiting, are unable to eat or drink, have persistent or worsening diarrhea or pain return to the ED Your CT showed small scattered pulmonary nodules. It is recommended these are reassess in 3 months Tiene jose masa p?lvica abdominal reci?n diagnosticada que se sospecha que se origina en medina pelvis. Necesita jose resonancia magn?gina, esto se programar? para usted, se comunicar? con usted desde [place] para programarlo. Jose vez que la resonancia magn?gina est? completa / los resultados, se lo derivar? a los subespecialistas adecuados. Si presenta fiebre, escalofr?os, n?useas / v?mitos, no puede comer ni beber, tiene diarrea persistente o que empeora o dolor, vuelva al servicio de urgencias. Medina TC mostr? han?os n?dulos pulmonares dispersos. Se recomienda que se vuelvan a evaluar en 3 meses Prescriptions: No Action empagliflozin [Jardiance] 25 mg tablet 25 mg PO QAM Qty: 30 RF: 6 dulaglutide 0.75 mg/0.5 mL pen injector 0.75 mg subcut QWEEK 28 Days Qty: 2 RF: 3 cyclobenzaprine 10 mg tablet 10 mg PO BEDTIME Qty: 30 RF: 0 ferrous sulfate 325 mg (65 mg iron) tablet 325 mg PO BID Qty: 60 RF: 0 hydrochlorothiazide 25 mg tablet 25 mg PO QAM Qty: 90 RF: 1 amlodipine 10 mg tablet 10 mg PO DAILY Qty: 90 RF: 1 metoprolol succinate 100 mg tablet extended release 24 hr 100 mg PO DAILY Qty: 90 RF: 1 hydrocodone-acetaminophen 5-325 mg tablet 1 tab PO Q6H PRN (Reason: pain) Qty: 12 RF: 0 ondansetron 4 mg tablet,disintegrating 4 mg PO Q8H PRN (Reason: nausea and vomiting) Qty: 20 RF: 0 losartan 100 mg tablet 100 mg PO DAILY RF: 0 glipizide 5 mg tablet 5 mg PO DAILY RF: 0 ibuprofen 800 mg tablet 800 mg PO BID 15 Days Qty: 30 RF: 0 clotrimazole-betamethasone 1-0.05 % cream 1 appl topical BID 14 Days Qty: 15 RF: 0 atorvastatin 40 mg tablet 40 mg PO BEDTIME 90 Days Qty: 90 RF: 3 simethicone [Gas Relief (simethicone)] 180 mg capsule 180 mg PO .Q.i.d. PRNRF: 0 sucralfate [Carafate] 1 gram tablet 2 g PO BID 30 Days Qty: 120 RF: 6 loperamide 2 mg capsule PO RF: 0 Janumet XR 50-1,000 mg tablet, ER multiphase 24 hr 2 tab PO BEDTIME RF: 0 (DME) lancets Misc See Rx Instructions ea .ROUTE .MEDSUPPLY Qty: 100 RF: 0 (DME) OneTouch Ultra Blue Test Strip Strip See Rx Instructions ea .ROUTE DAILY Qty: 10 RF: 0 furosemide 20 mg tablet 20 mg PO DAILY RF: 0 senna 8.6 mg capsule 17.2 mg PO BEDTIME PRN (Reason: constipation) 30 Days Qty: 60 RF: 3 Citrucel 500 mg tablet 1,000 mg PO DAILY 30 Days Qty: 60 RF: 6 hydrocortisone [Anusol-HC] 2.5 % cream with perineal applicator 1 appl MD BID PRN (Reason: hemorrhoids) 30 Days Qty: 30 RF: 6 omeprazole 20 mg capsule,delayed release(DR/EC) 20 mg PO DAILY Qty: 90 RF: 6 Referrals: Melissa Rousseau MD [Physician] - 2 days Print Language: Austrian [facility] Past Medical History Attestation statement: The following information was validated with the patient. 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 Mother No problems noted. Paternal Grandmother Cancer Paternal Aunt Cancer Family/Other Cancer Daughter Cancer History of open heart surgery Social History Social History Household Members: None Alcohol intake: never Smoking Status: Never smoker Use of substances other than those prescribed or required for medical reasons: No Advance Directives: No Advance Directives Information Provided: No Current occupational status: unemployed
--- NOTE | 2021-02-19 13:10 | ECG_ITS ---
Test Reason : ABD PAIN Blood Pressure : / mmHG Vent. Rate : 069 BPM Atrial Rate : 069 BPM P-R Int : 192 ms QRS Dur : 086 ms QT Int : 420 ms P-R-T Axes : 063 003 048 degrees QTc Int : 450 ms Normal sinus rhythm Normal ECG When compared with ECG of 17-NOV-2016 11:53, No significant change was found Referred By: Susi Montalvo Electronically Signed By:DIO ZEE
[2021-02-19 13:46] LABS: MANUAL DIFF FLAG NO
[2021-02-19 13:49] LABS: Basophils Percent Auto 0.3 % (0-2); Eosinophils Absolute Auto 0.2 X10*3/uL (0.0-0.4); Eosinophils Percent Auto 2.3 % (0-4); Hematocrit 33.3 % (37-47); Hemoglobin 10.2 g/dl (12.0-16.0); Imm Gran Abs Auto 0.03 X10*3/uL (0.00-0.03); Imm Gran Pct Auto 0.3 % (0.0-0.4); Lymphocytes Absolute Auto 1.4 X10*3/uL (1.2-4.9); Lymphocytes Percent Auto 15.5 % (20-40); Mean Corpuscular HGB Conc 30.6 g/dl (31.0-35.0); Mean Corpuscular Hemoglobin 26.4 pg (27.0-33.0); Mean Platelet Volume 9.1 fL (9.4-12.3); Monocytes Absolute Auto 0.8 X10*3/uL (0.1-1.2); Monocytes Percent Auto 8.5 % (2-11); Neutrophils Absolute Auto 6.6 X10*3/uL (2.0-8.3); Neutrophils Percent Auto 73.1 % (45-73); Platelet Count 505 X10*3/uL (160-400); Red Blood Count 3.87 X10*6/uL (4.20-5.50); Red Cell Distribution Width 14.7 % (11.0-16.0); White Blood Count 9.1 X10*3/uL (4.8-10.8)
[2021-02-19 14:08] LABS: Anion Gap 18 (12-20); Blood Urea Nitrogen 20 mg/dL (9-16); Calcium 9.3 mg/dL (8.4-10.2); Carbon Dioxide 23 mmol/L (22-29); Chloride 104 mmol/L (96-108); Creatinine Clr Calc Pharmacy 38.5; Estimated Glomerular Filt Rate 47; Glucose Random 107 mg/dL (60-115); Potassium 4.5 mmol/L (3.3-5.1); Sodium 140 mmol/L (135-145)
[2021-02-19 14:46] VITALS: BP 133/55; PULSE 71; RESP 16; O2SAT 95
--- NOTE | 2021-02-19 14:51 | PC.NURSE ---
Pt also noted with distended abd, not normal for pt. off unit to ct scan at this time
[2021-02-20 14:51] LABS: CA-125 1254 U/mL (<35)
== END 2021-02-19 17:15 | disposition home or self-care (01) ==
PROVIDERS: Physician Assistant; Emergency Provider Emergency Medicine Emergency Medical Services; PCP Internal Medicine
DX: R10.9 Unspecified abdominal pain (principal); R10.2 Pelvic and perineal pain; R91.8 Other nonspecific abnormal finding of lung field; M54.6 Pain in thoracic spine; E11.9 Type 2 diabetes mellitus without complications; I10 Essential (primary) hypertension; R19.00 Intra-abdominal and pelvic swelling, mass and lump, unspecified site; Z79.899 Other long term (current) drug therapy
CPT/HCPCS: 36415; 71250; 80048; 85025; 86304; 93005; 99284

== ENCOUNTER 2021-02-24 13:42 | Outpatient (REF) | payer MEDICARE, SELFPAY ==
--- NOTE | ~2021-02-24 | MR_ITS ---
EXAMINATION: MR PELVIS WITHOUT AND WITH CONTRAST CLINICAL INFORMATION: Abdominal pain COMPARISON: CT of the chest abdomen and pelvis dated 02/19/2021. TECHNIQUE: MRI of the pelvis was performed with and without IV contrast material. Multisequence, multiplanar images were obtained. FINDINGS: VISUALIZED KIDNEYS/URETERS: Out of the [id number]. BLADDER: Normal. REPRODUCTIVE ORGANS: Uterus: Absent. Ovaries: Not visualized. A lesion in the pelvis is predominantly positioned in the presacral space and measures approximately 7.1 x 6.9 x 9.5 cm (AP, TV, CC) (6:13), (8:21). The lesion demonstrates mild increase signal intensity on T1-weighted imaging and hyperintense signal on T2-weighted imaging. No saturation of signal on T1-weighted imaging is appreciated. Thin septation is noted in the superior aspect of the lesion. No nodular or masslike enhancement is appreciated on postcontrast imaging. The ovaries are not definitively visualized to definitively suggest that this abnormality arises form one of the ovaries. Given the close approximation to the peritoneum in the presacral space, this may reflect a peritoneal inclusion cyst which has accumulated blood products over time. Alternatively cystic neoplasm with accumulation of internal blood products is possible. If the patient has no history of oophorectomy, she is at increased risk for torsion. Surgical consultation is recommended. VISUALIZED BOWEL/PERITONEUM/RETROPERITONEUM: No dilated or thick-walled loops of bowel. No acute inflammatory process. There is a moderate volume of simple pelvic ascites. Some of this ascites appears loculated in the left pelvis (8:16). VASCULATURE: Abdominal aorta is normal in caliber. LYMPH NODES: No pathologically enlarged lymph nodes in the pelvis. BONES/SOFT TISSUES: A small bowel containing anterior abdominal wall hernia is noted with an anterior abdominal wall defect measuring approximately 3.2 cm x 3.7 cm (CC, TV). MR/MR pelvis wo/w con IMPRESSION: 1. Partially septated cystic lesion in the pelvis with close approximation to the presacral space peritoneum as detailed above. Findings may reflect a peritoneal inclusion cyst with accumulated blood products or a cystic neoplasm which has accumulated blood products over time. No masslike or nodular enhancement associated with this lesion is appreciated. Given size of lesion patient is at risk for torsion. Surgical consultation is recommended. 2. Hysterectomy. Nonvisualized ovaries. 3. Anterior abdominal wall small bowel containing hernia. 4. Moderate volume of pelvic ascites.
== END 2021-02-24 13:43 | disposition home or self-care (01) ==
LOC: HO.MRI 13:42
PROVIDERS: Visit Provider Obstetrics & Gynecology
DX: R19.00 Intra-abdominal and pelvic swelling, mass and lump, unspecified site (principal)
CPT/HCPCS: 72197; A9585

== ENCOUNTER → 2021-03-13 10:49 | Outpatient (BNVA) | payer MEDICARE, SELFPAY | PROVIDERS: PCP Internal Medicine; Referring Provider Internal Medicine; Visit Provider Nurse Practitioner Family ==

== ENCOUNTER → 2021-03-27 10:45 | Outpatient (BNVA) | payer MEDICARE, MEDICAID, SELFPAY | PROVIDERS: PCP Internal Medicine; Referring Provider Internal Medicine; Visit Provider Nurse Practitioner | DX: K21.9 Gastro-esophageal reflux disease without esophagitis (principal); K64.9 Unspecified hemorrhoids; K59.00 Constipation, unspecified; K90.89 Other intestinal malabsorption; K62.5 Hemorrhage of anus and rectum; K63.5 Polyp of colon; R14.0 Abdominal distension (gaseous) | CPT/HCPCS: Q3014 ==

== ENCOUNTER → 2021-04-01 11:29 | Outpatient (REF) | payer MEDICARE, MEDICAID, SELFPAY ==
--- NOTE | 2021-04-01 11:33 | CA_ITS ---
Transthoracic Echocardiogram Patient (Last, First, Middle): Jasmin Whitfield E Gender: Female Date of : 1945 Age: 75 Procedure Date: 04/01/2021 Procedure Type: Transthoracic Echocardiogram Location: OP Height: 149.86 cm Weight: 85.73 kg BSA: 1.80 m2 Heart Rate: bpm BP: 124 / 50 mmHg Garage Door Opener Installer: Referring MD: Trinity Thorne METAL FURNITURE PANEL COVERERMahnaz Symptoms: I35.0 - Nonrheumatic aortic (valve) stenosis Study Quality: Good ECG Rhythm: Sinus Conclusions: - The left ventricular systolic function is hyperdynamic. The visually estimated ejection fraction is >70%. - There is moderate aortic valve stenosis. - There is moderate mitral annular calcification. Findings Left Ventricle Normal left ventricular cavity size. There is mildly increased left ventricular wall thickness. The left ventricular systolic function is hyperdynamic. The visually estimated ejection fraction is >70%. There is no evidence of regional wall motion abnormalities. There is no dynamic left ventricular outflow tract obstruction. Evidence suggests grade I (mild) diastolic dysfunction. Right Ventricle Normal right ventricular cavity size and systolic function. Atria Both atria are normal in size. Aortic Valve There is moderate calcification of the aortic valve. There is moderate aortic valve stenosis. The peak aortic velocity is 3.83 m/s with a calculated peak gradient of 59 mmHg. The mean gradient is 33 mmHg. The aortic valve area is 1.18 cm2. There is mild aortic valve regurgitation. Dimensionless index 0.35. Mitral Valve There is moderate mitral annular calcification. There is no mitral valve regurgitation. There is no mitral valve stenosis. Pulmonic Valve The pulmonic valve was not well visualized. There is trace pulmonic valve regurgitation. Tricuspid Valve Normal tricuspid valve structure. There is mild tricuspid valve regurgitation. The pulmonary artery systolic pressure is normal. Great Vessels The aortic annulus, sinuses of valsalva, and asc aorta are normal in size. Venous The inferior vena cava is normal in size and collapses greater than 50% with inspiration. Pericardium/Pleural There is no evidence of pericardial effusion. Prior Study Comparison No significant change compared to prior study dated: 09/15/2021. Measurements 2D Linear Measurements RVIDd: 2.84 RVIDd Index: 1.58 IVSd: 1.04 0.6-0.9/0.6-1.0 cm LVIDd: 4.50 3.9-5.3/4.2-5.9 cm LVIDd Index: 2.50 2.4-3.2/2.2-3.1 cm/m2 LVIDs: 2.64 2.0-3.6 cm LVPWd: 1.21 0.7-1.1 cm Ao Root: 2.80 2.1-3.5 cm LA Diam: 4.30 2.7-3.8/3.0-4.0 cm LAIDs Index: 2.39 1.5-2.3 cm/m2 LV Mass: 225.08 67-162/88-224 g LV Mass Index: 125.04 43-95/49-115 g/m2 LVOT Diam: 2.00 3.0+(-)1.3 cm 2D Systolic Function EF 4C: 55.10 >55% EF 2C: 62.70 >55% EF BiP: 59.10 >55% Mitral Valve MV Pk E: 0.97 MV PK A: 1.64 MV Decel Time: 234.00 E/A: 0.60 E'Lateral: 8.49 E'Medial: 4.03 E/E' Med: 24.20 E/E' Lat: 11.50 Aortic Valve AoV Pk Bimal: 3.83 AoV Mn Bimal: 2.68 AoV VTI: 0.75 AoV Pk Grad: 59.00 Aov Mn Grad: 33.00 EDDIE Cont.VTI: 1.18 AI Pk Bimal: 3.68 AI Person: 3.15 LVOT LVOT Pk Bimal: 1.40 LVOT Mn Bimal: 1.06 LVOT VTI: 0.28 LVOT Pk Grad: 8.00 LVOT Mn Grad: 5.00 LVOT Diam: 2.00 LVOT Area: 3.14 Diastolic Function MV Pk E: 0.97 MV Pk A: 1.64 E/A: 0.60 E'Medial: 4.03 E/E' Med: 24.20 E' Laterial: 8.49 E/E' Lat: 11.50 Tricuspid Valve TR Pk Bimal: 2.70 TR Pk Grad: 29.00 RA Press: 3.00 RVSP: 32.00 Great Vessels Aorta Ao Root-2D: 2.80 2.0-3.7 cm Ao Asc: 2.90 2.1-3.4 cm Ao Arch: 2.70 Updated in Other Vendor System with Status of Final Raffy Sorensen MD electronically signed on 04/01/2021 4:42:21 PM with status of Final
== END ==
LOC: HO.CARD 11:29
PROVIDERS: PCP Internal Medicine; Visit Provider Nurse Practitioner Family
DX: Z01.818 Encounter for other preprocedural examination (principal); I35.0 Nonrheumatic aortic (valve) stenosis
CPT/HCPCS: 93306

== ENCOUNTER → 2021-04-02 14:14 | Outpatient (BNVA) | payer MEDICARE, MEDICAID, SELFPAY | PROVIDERS: Visit Provider Internal Medicine | DX: Z01.810 Encounter for preprocedural cardiovascular examination (principal); I35.0 Nonrheumatic aortic (valve) stenosis; I10 Essential (primary) hypertension; E11.8 Type 2 diabetes mellitus with unspecified complications | CPT/HCPCS: 93005; 99212 ==

== ENCOUNTER → 2021-06-24 13:09 | Outpatient (BNVA) | payer MEDICARE, MEDICAID, SELFPAY | PROVIDERS: PCP Internal Medicine; Referring Provider Internal Medicine; Visit Provider Internal Medicine | DX: I35.0 Nonrheumatic aortic (valve) stenosis (principal); I10 Essential (primary) hypertension; E11.8 Type 2 diabetes mellitus with unspecified complications | CPT/HCPCS: 99212 ==

== ENCOUNTER 2021-06-25 15:44 | Outpatient (REF) | payer MEDICARE, MEDICAID, SELFPAY ==
--- NOTE | ~2021-06-25 | MM_ITS ---
EXAMINATION: MM SCREENING DIGITAL BREAST TOMOSYNTHESIS, BILATERAL CLINICAL INFORMATION: Screening. Asymptomatic. The lifetime risk of breast cancer based on the Tyrer-Cuzick Model is 3%. COMPARISON: Mammography: 05/09/2020, 05/04/2019, 05/03/2018 TECHNIQUE: Digital breast tomosynthesis is performed in both the craniocaudal and mediolateral oblique views along with computer-aided detection (CAD). Synthesized 2D images are generated from the tomosynthesis. Additional right MLO and additional exaggerated right CC views are provided FINDINGS: There are scattered areas of fibroglandular density (ACR BI-RADS breast composition Category b). Breast tissue composition borders on heterogeneously dense. There is fibronodular parenchymal pattern with scattered minor asymmetries similar to prior studies. There is no interval mass or architectural abnormality or abnormal calcifications. No developing density. The axilla and skin contours are unremarkable. MM/MM tomosynthesis screening BI IMPRESSION: No mammographic evidence of malignancy. ASSESSMENT: BI-RADS 2: Benign RECOMMENDATION: Routine annual mammography screening. This patient's information was entered into a reminder system with a target due date for their next mammogram.
== END 2021-06-25 15:45 | disposition home or self-care (01) ==
LOC: HO.MAMMO 15:44
PROVIDERS: Visit Provider Internal Medicine
DX: Z12.31 Encounter for screening mammogram for malignant neoplasm of breast (principal)
CPT/HCPCS: 77063; 77067

== ENCOUNTER 2021-10-04 18:53 | Emergency (ER) | payer MEDICARE, MEDICAID, SELFPAY ==
--- NOTE | ~2021-10-04 | XR_ITS ---
EXAMINATION: XR KNEE, RIGHT CLINICAL INFORMATION: Fall COMPARISON: None TECHNIQUE: Four views of the right knee. FINDINGS: Osseous alignment is anatomic. There is mild tricompartmental degenerative change with joint space narrowing and osteophyte formation. No acute fracture is seen. No significant effusion. XR/XR knee RT 2V IMPRESSION: No acute findings identified.
--- NOTE | ~2021-10-04 | CT_ITS ---
EXAMINATION: CT HEAD WITHOUT CONTRAST CT CERVICAL SPINE WITHOUT CONTRAST CLINICAL INFORMATION: Fall. COMPARISON: None. TECHNIQUE: Contiguous axial imaging was performed from the skull base to vertex without intravenous administration of contrast. Contiguous axial imaging was performed from the upper chest through the skull base without intravenous administration of contrast. Coronal and sagittal reformats were obtained at the acquisition workstation. This CT examination was performed using dose optimization techniques as appropriate, variously including the following: *Automated exposure control *Adjustment of mA and/or kV according to patient size (this includes techniques or standardized protocols for targeted exams where dose is matched to indication/reason for exam; i.e. extremities or head) *Use of iterative reconstruction technique DLP: 321 mGy-cm FINDINGS: Head: There is no evidence of acute intracranial hemorrhage or edematous territorial infarction. A few foci of hypoattenuation in the periventricular and deep white matter are consistent with mild microangiopathy. Camara-white matter differentiation is preserved. Proportional prominence of the ventricles and sulcal spaces. No evidence for obstructive hydrocephalus. No abnormal mass effect or midline shift. No extra-axial fluid collections. Small subgaleal hematoma/contusion in the right parieto-occipital skull. No acute osseous findings. The mastoid air cells and paranasal sinuses are clear. Degenerative changes in the temporomandibular joints. Cervical Spine: The atlantooccipital and atlantoaxial articulations remain well aligned. Straightening of the normal cervical lordosis. Otherwise, there is anatomic alignment of the vertebral bodies and posterior elements. No evidence of acute fracture or subluxation. Mild to moderate multilevel cervical spondylosis with anterior osteophytes, disc space narrowing and uncovertebral hypertrophy. There is no prevertebral soft tissue swelling. The thyroid gland and remaining cervical soft tissues are normal in appearance. The lung apices demonstrate no abnormalities. CT/CT cervical spine wo con IMPRESSION: Subgaleal hematoma in the right scalp without acute intracranial abnormalities. Mild chronic microangiopathy and generalized cerebral volume loss. No acute cervical fractures or malalignment. Moderate cervical spondylosis.
[2021-10-04 21:11] VITALS: BP 154/55; PULSE 80; RESP 18; TEMP 36.6; O2SAT 98; BMI 26.9
--- NOTE | 2021-10-04 23:37 | ED_ITS ---
HPI - Fall General Chief Complaint: Fall Stated Complaint: fall Time Seen by Provider: 10/04/21 23:37 Source: patient and airline reservationist Mode of arrival: other (Walker) History of Present Illness HPI Narrative: 76-year-old female who presents via EMS after she sustained a mechanical fall by attempting to ector her grandson up the escalator and when her walker touched the front edge of the step it caused her to become imbalanced and she fell onto her bottom, striking her head but denies loss of consciousness and states that she felt find, but her daughter wanted her to be evaluated. Patient denies any blood thinners. Related Data Home Medications Medication Instructions Recorded Confirmed blood sugar diagnostic #10 ea 09/11/20 09/01/21 furosemide 20 mg tablet 20 mg PO DAILY 09/11/20 09/01/21 loperamide 2 mg capsule mg PO 09/11/20 09/01/21 glipizide 5 mg tablet 5 mg PO DAILY 09/30/20 09/01/21 losartan 100 mg tablet 100 mg PO DAILY 09/30/20 09/01/21 oxycodone 10 mg tablet 10 mg PO Q6H PRN 04/09/21 09/01/21 Previous Rx's Medication Instructions Recorded ibuprofen 800 mg tablet 800 mg PO BID 15 Days #30 tab 09/30/20 clotrimazole-betamethasone 1 1 appl TOPICAL BID 14 Days #15 g 11/26/20 %-0.05 % topical cream hydrocortisone 2.5 % topical cream 1 appl OH BID PRN 30 Days #30 g 12/26/20 with perineal applicator (Anusol-HC) sucralfate 1 gram tablet (Carafate) 2 g PO BID 30 Days #120 tab 01/30/21 simethicone 180 mg capsule (Gas 180 mg PO .Q.i.d. 30 Days #120 cap 03/27/21 Relief (simethicone)) toilet seat elevator #1 ea 05/25/21 hospital bed #1 ea 06/01/21 wheelchair #1 ea 06/01/21 atorvastatin 40 mg tablet 40 mg PO BEDTIME 90 Days #90 tab 07/08/21 empagliflozin 25 mg tablet 25 mg PO QAM #30 tab 07/08/21 (Jardiance) sitagliptin 50 mg-metformin ER 2 tab PO BEDTIME 90 Days #180 tab 07/08/21 1,000 mg tablet,extended release 24h mp dulaglutide 1.5 mg/0.5 mL 1.5 mg (0.5 mL) SUBCUT QWEEK 90 07/19/21 subcutaneous pen injector Days #6.5 ml (Trulicity) amlodipine 10 mg tablet 10 mg PO DAILY #90 tab 07/31/21 hydrochlorothiazide 25 mg tablet 25 mg PO QAM #90 tab 07/31/21 metoprolol succinate 100 mg 100 mg PO DAILY #90 tab 07/31/21 tablet,extended release 24 hr ferrous sulfate 325 mg (65 mg 325 mg PO BID 90 Days #180 tab 08/13/21 iron) tablet lancets (WAVE ([employer])Touch UltraSoft 1 ea MISCELLANEOUS DAILY #100 cap 08/26/21 Lancets) blood sugar diagnostic (OneTouch 1 strip MISCELLANEOUS DAILY #100 08/28/21 Ultra Test) strip omeprazole 20 mg capsule,delayed 40 mg PO DAILY #180 cap 10/04/21 release Allergies Allergy/AdvReac Type Severity Reaction Status Date / Time iodine Allergy Severe Anaphylaxis Verified 10/04/21 21:11 metformin Allergy Intermediate Rash Verified 10/04/21 21:11 aspirin Allergy Mild rash Verified 10/04/21 21:11 gabapentin AdvReac Intermediate visual Verified 10/04/21 21:11 distubance and sleepiness Review of Systems Review of Systems: Pertinent positives and negatives as stated in HPI 10 point review of systems is otherwise negative. 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 Mother No problems noted. Paternal Grandmother Cancer Paternal Aunt Cancer Family/Other Cancer Daughter Cancer History of open heart surgery Social History Social History Household Members: None Housing: Apartment Alcohol intake: never Patient Tobacco Use Status: Never used Tobacco e-Cigarette/Vaping Use: Never Used Second Hand Smoke Exposure: No Advance Directives: No service: No Current occupational status: unemployed Physical Exam Vital Signs: Vital Signs: Last Vital Signs Temp 98.1 F 10/05/21 00:18 Pulse 77 10/05/21 00:18 Resp 16 10/05/21 00:18 BP 159/61 H 10/05/21 00:18 Pulse Ox 98 10/05/21 00:18 Body Mass Index 26.9 VITAL SIGNS: Reviewed. GENERAL: Well developed, well nourished, in no acute distress. HEAD: Normocephalic/contusion to right parietal EYES: PERRLA, EOMI OROPHARYNX: no oral lesions noted, posterior pharynx clear Neck: No midline C-spine tenderness, supple LUNGS: Normal breath sounds. No adventitious sounds or accessory muscle use. SpO2<98> CARDIOVASCULAR: Regular rate and rhythm without noted murmurs ABDOMEN: Soft, non-tender, non-distended with bowel sounds. MUSCULOSKELETAL: No tenderness, deformities, or effusions noted on gross inspection. EXTREMITIES: No cyanosis, clubbing or edema, mild right knee pain but full range of motion noted with neurovascular intact distal. NEUROLOGIC: Alert and oriented x 4. Strength and sensation to light touch were grossly intact x 4, cranial nerves 2-12 grossly intact Course Course Course Narrative: 76-year-old female with history and clinical presentation consistent with mechanical fall without loss of consciousness and no focal findings. Will scan head, C-spine as well as x-ray of the right knee. Tylenol given for pain. Review of all investigations negative for any acute findings other than the contusion/hematoma already noted to the right parietal. On re-evaluation patient has had good resolution of her pain after receiving Tylenol and is otherwise discharged home in stable condition with instructions follow-up with primary care provider. Discharge Plan Discharge Clinical Impression: Fall, Contusion, Hematoma Patient Disposition: Home, Self-Care Instructions: Contusion in Adults (ED), Hematoma (ED), Fall Prevention for Older Adults (ED) Additional Instructions: 1. Richardude todos los medicamentos caseros seg?n lo prescrito. 2. Recomiende Tylenol / ibuprofeno de venta olivia seg?n sea necesario para controlar el dolor. 3. Alfredito un seguimiento con sinha proveedor de atenci?n primaria por la ma?nelli para jose reevaluaci?n adicional para el manejo ambulatorio. Regrese a la marquez de emergencias por un empeoramiento hien de los s?ntomas. Prescriptions: No Action (DME) hospital bed Kit See Rx Instructions .ROUTE .MEDSUPPLY Qty: 1 RF: 0 (DME) wheelchair See Rx Instructions .Route .MEDSUPPLY Qty: 1 RF: 0 atorvastatin 40 mg tablet 40 mg PO BEDTIME 90 Days Qty: 90 RF: 3 Jardiance 25 mg tablet 25 mg PO QAM Qty: 30 RF: 6 sitagliptin-metformin 50-1,000 mg tablet, ER multiphase 24 hr 2 tab PO BEDTIME 90 Days Qty: 180 RF: 3 Trulicity 1.5 mg/0.5 mL pen injector 1.5 mg subcut QWEEK 90 Days Qty: 6.5 RF: 3 amlodipine 10 mg tablet 10 mg PO DAILY Qty: 90 RF: 3 metoprolol succinate 100 mg tablet extended release 24 hr 100 mg PO DAILY Qty: 90 RF: 3 hydrochlorothiazide 25 mg tablet 25 mg PO QAM Qty: 90 RF: 1 lancets [OneTouch UltraSoft Lancets] Misc 1 ea miscellaneous DAILY Qty: 100 RF: 9 OneTouch Ultra Test Strip 1 strip miscellaneous DAILY Qty: 100 RF: 9 omeprazole 20 mg capsule,delayed release(DR/EC) 40 mg PO DAILY Qty: 180 RF: 0 losartan 100 mg tablet 100 mg PO DAILY RF: 0 glipizide 5 mg tablet 5 mg PO DAILY RF: 0 ibuprofen 800 mg tablet 800 mg PO BID 15 Days Qty: 30 RF: 0 clotrimazole-betamethasone 1-0.05 % cream 1 appl topical BID 14 Days Qty: 15 RF: 0 oxycodone 10 mg tablet 10 mg PO Q6H PRNRF: 0 ferrous sulfate 325 mg (65 mg iron) tablet 325 mg PO BID 90 Days Qty: 180 RF: 0 (DME) toilet seat elevator See Rx Instructions .Route .MEDSUPPLY Qty: 1 RF: 0 simethicone [Gas Relief (simethicone)] 180 mg capsule 180 mg PO .Q.i.d. 30 Days Qty: 120 RF: 6 sucralfate [Carafate] 1 gram tablet 2 g PO BID 30 Days Qty: 120 RF: 6 loperamide 2 mg capsule PO RF: 0 (DME) OneTouch Ultra Blue Test Strip Strip See Rx Instructions ea .ROUTE DAILY Qty: 10 RF: 0 furosemide 20 mg tablet 20 mg PO DAILY RF: 0 hydrocortisone [Anusol-HC] 2.5 % cream with perineal applicator 1 appl OH BID PRN (Reason: hemorrhoids) 30 Days Qty: 30 RF: 6 Referrals: Nelli Richardson MD [Primary Care Provider] - 2 days Print Language: English
[2021-10-04] MEDS: Acetaminophen 325 MG TABLET 975 MG PO (23:48)
[2021-10-05 00:18] VITALS: BP 159/61; PULSE 77; RESP 16; TEMP 36.7; O2SAT 98
--- NOTE | 2021-10-05 04:36 | PC.NURSE ---
Pt alert and oriented x4, calm and cooperative. Pt denies pain, stating headache resolved with Tylenol given. Pt denies right knee pain. Pt educated on discharge and results, stated an understanding. Pt ambulating with walker and steady on her feet. Pt states she does not have a ride home, only family is granddaughter who just moved here from [place], does not own car. Pt state she takes public transportation. Taxi called, not running throughout night. Pt offered chair ambulance and educated on needing to pay, pt refused. Pt is waiting for the morning when Taxi's are running to call and get a ride home. Pt greek speaking only. Pt pleasant and not in distress. Pt resting asleep at this time. Will continue to monitor.
--- NOTE | 2021-10-05 06:46 | PC.NURSE ---
3 different [employer] companies called, left voice messages for all 3.
== END 2021-10-05 08:00 | disposition home or self-care (01) ==
PROVIDERS: Emergency Provider Student in an Organized Health Care Education/Training Program; PCP Internal Medicine
DX: S00.93XA Contusion of unspecified part of head, initial encounter (principal); W10.0XXA Fall (on)(from) escalator, initial encounter; M25.561 Pain in right knee; Y93.89 Activity, other specified; Y92.9 Unspecified place or not applicable; Y99.9 Unspecified external cause status
CPT/HCPCS: 70450; 72125; 73560; 99284

== ENCOUNTER → 2021-12-08 12:29 | Outpatient (BNVA) | payer MEDICARE, MEDICAID, SELFPAY | PROVIDERS: PCP Internal Medicine; Referring Provider Internal Medicine; Visit Provider Internal Medicine | DX: I35.0 Nonrheumatic aortic (valve) stenosis (principal); I10 Essential (primary) hypertension; E11.8 Type 2 diabetes mellitus with unspecified complications; C78.6 Secondary malignant neoplasm of retroperitoneum and peritoneum; Z79.84 Long term (current) use of oral hypoglycemic drugs | CPT/HCPCS: 99212 ==

== ENCOUNTER → 2022-04-08 12:55 | Outpatient (REF) | payer MEDICARE, MEDICAID, SELFPAY ==
--- NOTE | 2022-04-08 13:01 | CA_ITS ---
Transthoracic Echocardiogram Patient (Last, First, Middle): Jasmin Whitfield E Gender: Female Date of : 1945 Age: 76 Procedure Date: 04/08/2022 Procedure Type: Transthoracic Echocardiogram Location: OP Height: 152.4 cm Weight: 68.95 kg BSA: 1.66 m2 Heart Rate: bpm BP: 130 / 60 mmHg Financial Operations Consultant: JODI Feliciano MD: Raffy Sorensen MD Manager Engagement: Louis Leahy MD Symptoms: I35.0 - Nonrheumatic aortic (valve) stenosis Study Quality: Good ECG Rhythm: Sinus Conclusions: - 1. Normal LV systolic function is mild LVH with impaired relaxation abnormalities 2. Moderate aortic stenosis with mild aortic regurgitation 3. Normal RVSP 4. No pericardial effusion. Findings Left Ventricle Normal left ventricular size and systolic function. There is mildly increased left ventricular wall thickness. The visually estimated ejection fraction is between 60-65%. Spectral Doppler is indicative of an impaired relaxation filling pattern. Right Ventricle Normal right ventricular cavity size and systolic function. Atria The left atrium is moderately dilated. There is no evidence of interatrial shunt. The right atrium is likely dilated. Aortic Valve There is moderate calcification of the aortic valve. There is mild thickening of the aortic valve. There is moderate aortic valve stenosis. The peak aortic gradient is 48 mmHg.The mean gradient is 27 mmHg. The aortic valve area is 1.07 cm2. There is mild aortic valve regurgitation. Dimensionless index is 0.33 Mitral Valve There is mild anterior and severe posterior mitral leaflet thickening. There is moderate mitral annular calcification. There is mild mitral valve regurgitation. There is no mitral valve stenosis. Pulmonic Valve The pulmonic valve was not well visualized. Tricuspid Valve Likely normal tricuspid valve structure and function. There is mild tricuspid valve regurgitation. The right ventricular systolic pressure is normal. The right ventricular systolic pressure is 30 mmHg. There is no evidence of pulmonary hypertension. Great Vessels All visible segments of the aorta are normal in size. The pulmonary artery was not well visualized. Venous The inferior vena cava is normal in size and collapses greater than 50% with inspiration. Pericardium/Pleural There is no evidence of pericardial effusion. Prior Study Comparison No significant change compared to prior study dated: 04/01/2021. Measurements 2D Linear Measurements IVSd: 1.31 0.6-0.9/0.6-1.0 cm LVIDd: 3.41 3.9-5.3/4.2-5.9 cm LVIDd Index: 2.05 2.4-3.2/2.2-3.1 cm/m2 LVIDs: 2.33 2.0-3.6 cm LVPWd: 1.14 0.7-1.1 cm LA Diam: 4.00 2.7-3.8/3.0-4.0 cm LAIDs Index: 2.41 1.5-2.3 cm/m2 LV Mass: 168.04 67-162/88-224 g LV Mass Index: 101.23 43-95/49-115 g/m2 LVOT Diam: 2.00 3.0+(-)1.3 cm 2D Systolic Function EF 4C: 67.30 >55% EF 2C: 57.30 >55% EF BiP: 63.10 >55% Mitral Valve MV Pk E: 0.99 MV PK A: 1.56 MV Decel Time: 152.00 E/A: 0.60 E'Lateral: 6.74 E'Medial: 5.44 E/E' Med: 18.20 E/E' Lat: 14.70 PHT: 44.00 MVA PHT: 5.00 Decel Lenoir: 6.52 Aortic Valve AoV Pk Bimal: 3.45 AoV Mn Bimal: 2.46 AoV VTI: 0.75 AoV Pk Grad: 48.00 Aov Mn Grad: 27.00 EDDIE Cont.VTI: 1.07 AI Pk Bimal: 3.84 AI Lenoir: 3.39 LVOT LVOT Pk Bimal: 1.10 LVOT Mn Bimal: 0.89 LVOT VTI: 0.26 LVOT Pk Grad: 5.00 LVOT Mn Grad: 3.00 LVOT Diam: 2.00 LVOT Area: 3.14 Diastolic Function MV Pk E: 0.99 MV Pk A: 1.56 E/A: 0.60 E'Medial: 5.44 E/E' Med: 18.20 E' Laterial: 6.74 E/E' Lat: 14.70 Right Ventricle TAPSE (mm): 19.10 TVS' Bimal: 8.81 Tricuspid Valve TR Pk Bimal: 2.58 TR Pk Grad: 27.00 RA Press: 3.00 RVSP: 30.00 Great Vessels Aorta Sinus of Valsalva: 3.09 2.0-3.[address] Ridge: 2.90 1.7-3.4 cm Ao Asc: 2.90 2.1-3.4 cm Ao Arch: 2.50 Updated in Other Vendor System with Status of Final Louis Leahy MD electronically signed on 04/09/2022 4:21:11 PM with status of Final
== END ==
LOC: HO.CARD 12:55
PROVIDERS: PCP Internal Medicine; Visit Provider Internal Medicine
DX: I35.0 Nonrheumatic aortic (valve) stenosis (principal)
CPT/HCPCS: 93306

== ENCOUNTER → 2022-04-21 13:40 | Outpatient (BNVA) | payer MEDICARE, MEDICAID, SELFPAY | PROVIDERS: PCP Internal Medicine; Referring Provider Internal Medicine; Visit Provider Internal Medicine | DX: I35.0 Nonrheumatic aortic (valve) stenosis (principal); I10 Essential (primary) hypertension; E11.9 Type 2 diabetes mellitus without complications; I25.10 Atherosclerotic heart disease of native coronary artery without angina pectoris; C78.6 Secondary malignant neoplasm of retroperitoneum and peritoneum; Z79.84 Long term (current) use of oral hypoglycemic drugs; Z79.899 Other long term (current) drug therapy | CPT/HCPCS: 93005; 99212 ==

== ENCOUNTER 2022-06-28 08:08 | Outpatient (REF) | payer MEDICARE, MEDICAID, SELFPAY ==
--- NOTE | ~2022-06-28 | MM_ITS ---
EXAMINATION: MM SCREENING DIGITAL BREAST TOMOSYNTHESIS, BILATERAL CLINICAL INFORMATION: Screening. Asymptomatic. The lifetime risk of breast cancer based on the Tyrer-Cuzick Model is 2.3%. COMPARISON: Mammography: 06/25/2021 and studies dating back to 01/26/2017. TECHNIQUE: Digital breast tomosynthesis is performed in both the craniocaudal and mediolateral oblique views along with computer-aided detection (CAD). Synthesized 2D images are generated from the tomosynthesis. FINDINGS: There are scattered areas of fibroglandular density (ACR BI-RADS breast composition Category b). There is a stable parenchymal pattern of the right breast without new abnormal dominant mass or suspicious grouping of microcalcifications. Within the superior aspect of the left breast, there is a partially circumscribed 1.3 x 1.0 cm density lying approximately 6 cm from the nipple. This may represent superimposition of fibroglandular tissue with no correlate seen on craniocaudal projection. Spot compression view and 90-degree mediolateral view is recommended. MM/MM tomosynthesis screening BI IMPRESSION: Left breast density for further evaluation as described. ASSESSMENT: BI-RADS 0: Incomplete - Need Additional Imaging Evaluation RECOMMENDATION: 1. Additional views of the left breast. 2. Targeted ultrasound if warranted after review of the additional views. 3. Radiology department staff will contact the patient for additional imaging. This patient's information was entered into a reminder system with a target due date for their next mammogram.
== END 2022-06-28 08:09 | disposition home or self-care (01) ==
LOC: HO.MAMMO 08:08
PROVIDERS: PCP Internal Medicine; Visit Provider Internal Medicine
DX: Z12.31 Encounter for screening mammogram for malignant neoplasm of breast (principal)
CPT/HCPCS: 77063; 77067

== ENCOUNTER 2022-07-21 14:55 | Outpatient (REF) | payer MEDICARE, MEDICAID, SELFPAY ==
--- NOTE | ~2022-07-21 | US_ITS ---
EXAMINATION: MM DIAGNOSTIC DIGITAL BREAST TOMOSYNTHESIS, LEFT TARGETED LEFT BREAST ULTRASOUND CLINICAL INFORMATION: Left breast density in the superior aspect. COMPARISON: Mammography: 06/28/2022 and studies dating back to 01/26/2017. TECHNIQUE: Digital breast tomosynthesis is performed. 2D images are generated from the tomosynthesis. The following views are obtained: Full-field 90 degree mediolateral view as well as spot compression views left breast mediolateral oblique projection. FINDINGS: There are scattered areas of fibroglandular density (ACR BI-RADS breast composition Category b). There is some effacement of density about the superior aspect of the left breast which is likely related to superimposition of fibroglandular tissue. There is some residual dense breast parenchyma in this location. Targeted ultrasound evaluation about the superior aspect of the left breast did not demonstrate any abnormal cystic or solid lesions. No region of abnormal distal sound shadowing was identified. No edematous change within the parenchyma is seen. Six-month left breast diagnostic mammogram suggested. Results are discussed with the patient at time of visit. US/US breast LT limited IMPRESSION: Asymmetric density superior aspect of the left breast appears to represent superimposition of dense parenchyma. Recommend 6 month follow up left breast mammogram to ensure stability. ASSESSMENT: BI-RADS 3: Probably Benign. RECOMMENDATION: Diagnostic mammography in 6 months. This patient's information was entered into a reminder system with a target due date for their next mammogram.
--- NOTE | ~2022-07-21 | MM_ITS ---
EXAMINATION: MM DIAGNOSTIC DIGITAL BREAST TOMOSYNTHESIS, LEFT US TARGETED BREAST, LEFT CLINICAL INFORMATION: Left breast density superior aspect. COMPARISON: Mammography: 06/28/2022 and studies dating back to 01/26/2017. TECHNIQUE: Digital breast tomosynthesis is performed. 2D images are generated from the tomosynthesis. The following views are obtained: Full-field 90 degree mediolateral view as well as spot compression views left breast mediolateral oblique projection. FINDINGS: There are scattered areas of fibroglandular density (ACR BI-RADS breast composition Category b). There is some effacement of density about the superior aspect of the left breast which is likely related to superimposition of fibroglandular tissue. There is some residual dense breast parenchyma in this location. ULTRASOUND: Targeted ultrasound evaluation about the superior aspect of the left breast did not demonstrate any abnormal cystic or solid lesions. No region of abnormal distal sound shadowing was identified. No edematous change within the parenchyma is seen. Six-month left breast diagnostic mammogram suggested. Results are discussed with the patient at time of visit. MM/MM tomosynthesis added views L IMPRESSION: Asymmetric density superior aspect of the left breast appears to represent superimposition of dense parenchyma. Recommend 6 month follow up left breast mammogram to ensure stability. ASSESSMENT: BI-RADS 3: Probably Benign. RECOMMENDATION: Diagnostic mammography in 6 months. This patient's information was entered into a reminder system with a target due date for their next mammogram.
== END 2022-07-21 14:56 | disposition home or self-care (01) ==
LOC: HO.MAMMO 14:55
PROVIDERS: PCP Internal Medicine; Visit Provider Internal Medicine
DX: R92.2 Inconclusive mammogram (principal)
CPT/HCPCS: 76642; 77061; 77065

== ENCOUNTER → 2022-10-20 13:59 | Outpatient (BNVA) | payer OTHER, SELFPAY | PROVIDERS: PCP Internal Medicine; Referring Provider Internal Medicine; Visit Provider Internal Medicine | DX: I35.0 Nonrheumatic aortic (valve) stenosis (principal); I25.10 Atherosclerotic heart disease of native coronary artery without angina pectoris; I10 Essential (primary) hypertension; E11.8 Type 2 diabetes mellitus with unspecified complications; C78.6 Secondary malignant neoplasm of retroperitoneum and peritoneum; Z79.899 Other long term (current) drug therapy | CPT/HCPCS: 99212 ==

== ENCOUNTER 2022-11-22 09:39 | Outpatient (REF) | payer OTHER, SELFPAY ==
[2022-11-22 09:56] LABS: MANUAL DIFF FLAG NO
[2022-11-22 10:42] LABS: Basophils Percent Auto 0.6 % (0-2); Eosinophils Absolute Auto 0.1 X10*3/uL (0.0-0.4); Eosinophils Percent Auto 2.8 % (0-4); Hematocrit 30.8 % (37.0-47.0); Hemoglobin 9.5 g/dl (12.0-16.0); Imm Gran Abs Auto 0.02 X10*3/uL (0.00-0.03); Imm Gran Pct Auto 0.6 % (0.0-0.4); Lymphocytes Absolute Auto 1.3 X10*3/uL (1.2-4.9); Mean Corpuscular HGB Conc 30.8 g/dl (31.0-35.0); Mean Corpuscular Hemoglobin 27.5 pg (27.0-33.0); Mean Platelet Volume 9.7 fL (9.4-12.3); Monocytes Absolute Auto 0.2 X10*3/uL (0.1-1.2); Monocytes Percent Auto 5.3 % (2-11); Neutrophils Absolute Auto 1.7 x10*3/uL (2.0-8.3); Neutrophils Percent Auto 51.7 % (45-73); Platelet Count 390 X10*3/uL (160-400); Red Blood Count 3.46 X10*6/uL (4.20-5.50); Red Cell Distribution Width 17.5 % (11.0-16.0); White Blood Count 3.2 X10*3/uL (4.8-10.8)
[2022-11-22 11:22] LABS: Alanine Aminotransferase 14 U/L (0-31); Albumin Level 3.8 g/dL (3.5-5.0); Alkaline Phosphatase 90 U/L (39-117); Anion Gap 13 (12-20); Aspartate Amino Transferase 16 U/L (5-31); Blood Urea Nitrogen 35 mg/dL (9-16); Calcium 9.2 mg/dL (8.4-10.2); Carbon Dioxide 29 mmol/L (22-29); Chloride 104 mmol/L (96-108); Cholesterol 232 mg/dL; Estimated Glomerular Filt Rate 41; Glucose Fasting 138 mg/dL (60-99); HDL Cholesterol 44 mg/dL; Iron 98 mcg/dL (30-160); LDL Cholesterol Calculated 139 mg/dl; Percent Iron Saturation 45 % (15-50); Potassium 4.2 mmol/L (3.3-5.1); Sodium 142 mmol/L (135-145); Total Iron Binding Capacity 218 mcg/dL (228-428); Total Protein 6.6 g/dL (6.5-8.0); Triglycerides 247 mg/dL; Unsaturated Iron Binding 120 ug/dL
[2022-11-22 11:29] LABS: Vitamin D 25-OH Total 18.9 ng/mL (>30)
[2022-11-22 11:50] LABS: Creatinine Urine 92.31 mg/dL; Microalbum/Creatinine Ratio Ur 51.9 ug/mg cr
== END 2022-11-22 09:40 | disposition home or self-care (01) ==
LOC: HO.LAB 09:39
PROVIDERS: PCP Internal Medicine; Visit Provider Internal Medicine
DX: E55.9 Vitamin D deficiency, unspecified (principal); D64.9 Anemia, unspecified; E11.8 Type 2 diabetes mellitus with unspecified complications; E78.5 Hyperlipidemia, unspecified
CPT/HCPCS: 36415; 80053; 80061; 82043; 82306; 83540; 85025

== ENCOUNTER → 2023-01-05 09:30 | Outpatient (BNVA) | payer OTHER, SELFPAY | PROVIDERS: PCP Internal Medicine; Visit Provider Internal Medicine | DX: I35.0 Nonrheumatic aortic (valve) stenosis (principal); I25.10 Atherosclerotic heart disease of native coronary artery without angina pectoris; I10 Essential (primary) hypertension; E11.8 Type 2 diabetes mellitus with unspecified complications; C78.6 Secondary malignant neoplasm of retroperitoneum and peritoneum | CPT/HCPCS: 99212 ==

== ENCOUNTER → 2023-01-11 13:42 | Outpatient (REF) | payer OTHER, SELFPAY ==
--- NOTE | 2023-01-11 13:46 | CA_ITS ---
Transthoracic Echocardiogram Patient (Last, First, Middle): Jasmin Whitfield E Gender: Female Date of : 1945 Age: 77 Procedure Date: 01/11/2023 Procedure Type: Transthoracic Echocardiogram Location: OP Height: 154.94 cm Weight: 68.04 kg BSA: 1.67 m2 Heart Rate: bpm BP: 105 / 50 mmHg Director Clinical Operations: MADELAINE Referring MD: Raffy Sorensen MD Symptoms: I35.0 - Nonrheumatic aortic (valve) stenosis Study Quality: Adequate ECG Rhythm: Sinus Conclusions: - The left ventricular systolic function is hyperdynamic. The visually estimated ejection fraction is >70%. - There is moderate aortic valve stenosis. - There is moderate mitral annular calcification. Findings Left Ventricle Normal left ventricular cavity size. There is moderately increased left ventricular wall thickness. The left ventricular systolic function is hyperdynamic. The visually estimated ejection fraction is >70%. There is no evidence of regional wall motion abnormalities. There is no dynamic left ventricular outflow tract obstruction. Diastolic function is indeterminate on the basis of available data. Right Ventricle Normal right ventricular cavity size. There is low normal right ventricular systolic function. Atria The left atrium is mildly dilated. The right atrium is normal in size. Aortic Valve There is moderate calcification of the aortic valve. There is moderate aortic valve stenosis. The peak aortic velocity is 3.54 m/s with a calculated peak gradient of 50 mmHg. The mean gradient is 27 mmHg. The aortic valve area is 1.03 cm2. There is mild aortic valve regurgitation. Mitral Valve There is moderate mitral annular calcification. There is no mitral valve regurgitation. There is no mitral valve stenosis. Pulmonic Valve The pulmonic valve is likely normal. There is trace pulmonic valve regurgitation. Tricuspid Valve There is mild tricuspid valve regurgitation. There is no evidence of pulmonary hypertension. Great Vessels The asc aorta and aortic arch are normal in size. Venous The inferior vena cava is normal in size and collapses greater than 50% with inspiration. Pericardium/Pleural There is no evidence of pericardial effusion. Prior Study Comparison No significant change compared to prior study dated: 04/08/2022. Measurements 2D Linear Measurements IVSd: 1.40 0.6-0.9/0.6-1.0 cm LVIDd: 3.75 3.9-5.3/4.2-5.9 cm LVIDd Index: 2.25 2.4-3.2/2.2-3.1 cm/m2 LVIDs: 2.51 2.0-3.6 cm LVPWd: 1.28 0.7-1.1 cm LA Diam: 3.60 2.7-3.8/3.0-4.0 cm LAIDs Index: 2.16 1.5-2.3 cm/m2 LV Mass: 221.64 67-162/88-224 g LV Mass Index: 132.72 43-95/49-115 g/m2 LVOT Diam: 2.00 3.0+(-)1.3 cm 2D Systolic Function EF 4C: 64.80 >55% EF 2C: 67.10 >55% EF BiP: 65.20 >55% Mitral Valve MV VTI: 0.30 MV Pk Bimal: 1.80 MV Mn Bimal: 1.13 MV Pk Grad: 13.00 MV Mn Grad: 6.00 MV Pk E: 0.87 MV PK A: 1.66 MV Decel Time: 166.00 E/A: 0.50 E'Lateral: 7.07 E'Medial: 3.81 E/E' Med: 22.70 E/E' Lat: 12.20 PHT: 49.00 MVA PHT: 4.49 MVA Continuity: 2.69 Decel Cooper: 5.22 Aortic Valve AoV Pk Bimal: 3.54 AoV Mn Bimal: 2.43 AoV VTI: 0.78 AoV Pk Grad: 50.00 Aov Mn Grad: 27.00 EDDIE Cont.VTI: 1.03 AI Pk Bimal: 3.96 AI Cooper: 3.56 LVOT LVOT Pk Bimal: 1.13 LVOT Mn Bimal: 0.85 LVOT VTI: 0.26 LVOT Pk Grad: 5.00 LVOT Mn Grad: 3.00 LVOT Diam: 2.00 LVOT Area: 3.14 Diastolic Function MV Pk E: 0.87 MV Pk A: 1.66 E/A: 0.50 E'Medial: 3.81 E/E' Med: 22.70 E' Laterial: 7.07 E/E' Lat: 12.20 Right Ventricle TAPSE (mm): 18.70 TVS' Bimal: 6.53 Tricuspid Valve TR Pk Bimal: 2.15 TR Pk Grad: 18.00 RA Press: 3.00 RVSP: 21.00 Great Vessels Aorta Sinus of Valsalva: 3.17 2.0-3.[address] Ridge: 2.27 1.7-3.4 cm Ao Asc: 3.20 2.1-3.4 cm Ao Arch: 2.70 Updated in Other Vendor System with Status of Final Raffy Sorensen MD electronically signed on 01/13/2023 2:53:29 PM with status of Final
== END ==
LOC: HO.CARD 13:42
PROVIDERS: PCP Internal Medicine; Visit Provider Internal Medicine
DX: I35.0 Nonrheumatic aortic (valve) stenosis (principal)
CPT/HCPCS: 93306

== ENCOUNTER → 2023-04-25 13:56 | Outpatient (BNVA) | payer OTHER, SELFPAY | PROVIDERS: PCP Internal Medicine; Referring Provider Internal Medicine; Visit Provider Internal Medicine | DX: I35.0 Nonrheumatic aortic (valve) stenosis (principal); I25.10 Atherosclerotic heart disease of native coronary artery without angina pectoris; I10 Essential (primary) hypertension; E11.8 Type 2 diabetes mellitus with unspecified complications; C78.6 Secondary malignant neoplasm of retroperitoneum and peritoneum | CPT/HCPCS: 93005; 99212 ==

== ENCOUNTER → 2023-07-08 11:15 | Outpatient (BNV) | payer OTHER, SELFPAY | PROVIDERS: Visit Provider Radiology Diagnostic Radiology | DX: Z12.31 Encounter for screening mammogram for malignant neoplasm of breast (principal) | CPT/HCPCS: 77063; 77067 ==

== ENCOUNTER 2023-07-08 11:21 | Outpatient (REF) | payer OTHER, SELFPAY | END 2023-07-08 11:22 | disposition home or self-care (01) | LOC: HO.MAMMO 11:21 | PROVIDERS: Visit Provider Internal Medicine | DX: Z12.31 Encounter for screening mammogram for malignant neoplasm of breast (principal) | CPT/HCPCS: 77063; 77067 ==

== ENCOUNTER → 2023-07-18 11:04 | Outpatient (REF) | payer OTHER, SELFPAY ==
--- NOTE | 2023-07-18 11:11 | CA_ITS ---
Transthoracic Echocardiogram Patient (Last, First, Middle): Jasmin Whitfield E Gender: Female Date of : 1945 Age: 77 Procedure Date: 07/18/2023 Procedure Type: Transthoracic Echocardiogram Location: OP Height: 152.4 cm Weight: 72.58 kg BSA: 1.70 m2 Heart Rate: bpm BP: 136 / 60 mmHg Equity Trader: MADELAINE Referring MD: Raffy Sorensen MD Symptoms: I35.0 - Nonrheumatic aortic (valve) stenosis Study Quality: Fair ECG Rhythm: Sinus Conclusions: - The left ventricular systolic function is hyperdynamic. The visually estimated ejection fraction is >70%. - There is moderately increased left ventricular wall thickness. - There is severe aortic valve stenosis. - There is severe mitral annular calcification. Findings Left Ventricle Normal left ventricular cavity size. There is moderately increased left ventricular wall thickness. The left ventricular systolic function is hyperdynamic. The visually estimated ejection fraction is >70%. There is no evidence of regional wall motion abnormalities. Evidence suggests grade I (mild) diastolic dysfunction. Right Ventricle Normal right ventricular cavity size and systolic function. Atria The left atrium is mildly dilated. The right atrium is normal in size. Aortic Valve There is severe calcification of the aortic valve. There is severe aortic valve stenosis. The peak aortic velocity is 4.15 m/s with a calculated peak gradient of 69 mmHg. The mean gradient is 37 mmHg. The aortic valve area is 0.79 cm2. There is mild aortic valve regurgitation. Dimensionless index 0.27. Mitral Valve There is severe mitral annular calcification. There is no mitral valve regurgitation. There is no mitral valve stenosis. Pulmonic Valve The pulmonic valve is likely normal. Tricuspid Valve Normal tricuspid valve structure. There is trace tricuspid valve regurgitation. There is no evidence of pulmonary hypertension. Great Vessels The asc aorta is normal in size. Venous The inferior vena cava is normal in size and collapses greater than 50% with inspiration. Pericardium/Pleural There is no evidence of pericardial effusion. Prior Study Comparison Changes noted compared to prior study dated: 01/11/2023. Progression of aortic valve stenosis. . Measurements 2D Linear Measurements IVSd: 1.40 0.6-0.9/0.6-1.0 cm LVIDd: 3.80 3.9-5.3/4.2-5.9 cm LVIDd Index: 2.24 2.4-3.2/2.2-3.1 cm/m2 LVIDs: 2.40 2.0-3.6 cm LVPWd: 1.30 0.7-1.1 cm LA Diam: 3.60 2.7-3.8/3.0-4.0 cm LAIDs Index: 2.12 1.5-2.3 cm/m2 LV Mass: 228.54 67-162/88-224 g LV Mass Index: 134.44 43-95/49-115 g/m2 LVOT Diam: 1.90 3.0+(-)1.3 cm 2D Systolic Function EF 4C: 57.90 >55% EF 2C: 68.40 >55% EF BiP: 65.40 >55% Mitral Valve MV VTI: 0.42 MV Pk Bimal: 1.48 MV Mn Bimal: 0.74 MV Pk Grad: 9.00 MV Mn Grad: 3.00 MV Pk E: 0.92 MV PK A: 1.34 MV Decel Time: 324.00 E/A: 0.70 E'Lateral: 7.62 E'Medial: 4.35 E/E' Med: 21.20 E/E' Lat: 12.10 PHT: 95.00 MVA PHT: 2.32 MVA Continuity: 2.00 Decel Lamar: 2.85 Aortic Valve AoV Pk Bimal: 4.15 AoV Mn Bimal: 2.84 AoV VTI: 1.06 AoV Pk Grad: 69.00 Aov Mn Grad: 37.00 EDDIE Cont.VTI: 0.79 AI Pk Bimal: 3.83 AI Lamar: 3.41 LVOT LVOT Pk Bimal: 1.12 LVOT Mn Bimal: 0.82 LVOT VTI: 0.29 LVOT Pk Grad: 5.00 LVOT Mn Grad: 3.00 LVOT Diam: 1.90 LVOT Area: 2.84 Diastolic Function MV Pk E: 0.92 MV Pk A: 1.34 E/A: 0.70 E'Medial: 4.35 E/E' Med: 21.20 E' Laterial: 7.62 E/E' Lat: 12.10 Right Ventricle TAPSE (mm): 24.00 TVS' Bimal: 8.27 Tricuspid Valve TR Pk Bimal: 2.17 TR Pk Grad: 19.00 RA Press: 3.00 RVSP: 22.00 Great Vessels Aorta Sinus of Valsalva: 3.40 2.0-3.[address] Ridge: 2.10 1.7-3.4 cm Ao Asc: 3.10 2.1-3.4 cm Updated in Other Vendor System with Status of Final Raffy Sorensen MD electronically signed on 07/19/2023 10:31:11 AM with status of Final
== END ==
LOC: HO.CARD 11:04
PROVIDERS: Visit Provider Internal Medicine
DX: I35.0 Nonrheumatic aortic (valve) stenosis (principal)
CPT/HCPCS: 93306

== ENCOUNTER → 2023-07-18 11:11 | Outpatient (BNV) | payer OTHER, SELFPAY | PROVIDERS: Visit Provider Internal Medicine | DX: I35.0 Nonrheumatic aortic (valve) stenosis (principal); I34.81 Nonrheumatic mitral (valve) annulus calcification | CPT/HCPCS: 93306 ==

== ENCOUNTER 2024-01-01 09:54 | Emergency (ER) | payer OTHER, SELFPAY ==
--- NOTE | ~2024-01-01 | XR_ITS ---
EXAMINATION: XR CHEST CLINICAL INFORMATION: Chest pain COMPARISON: CT chest 02/19/2021, chest radiograph 05/31/2018 TECHNIQUE: 2 views of the chest were obtained. FINDINGS: Lungs are hypoexpanded and allowing for this, no significant abnormality is noted involving the heart, lungs, mediastinum, bony thorax or soft tissues. A right chest wall internal jugular port is present with its tip near the SVC RA junction. Mild degenerative changes are present in the spine. XR/XR chest 2V IMPRESSION: No acute intrathoracic disease.
--- NOTE | ~2024-01-01 | CT_ITS ---
EXAMINATION: CT angio chest PE protocol, CT abdomen pelvis w IV con INDICATION: 16-year-old female with a history of colon cancer rule out pulmonary embolism, pleuritic chest pain COMPARISON: CT of chest and abdomen from 02/19/2021 TECHNIQUE: Prior to contrast administration, noncontrast localization images were obtained. Subsequently, multidetector volumetric imaging was performed from the thoracic inlet to below the pubis symphysis following the administration of 85 mL Omnipaque 350 intravenous contrast. No contrast reaction reported Sagittal, coronal, and MIP oblique sagittal reformatted images were obtained on the CT workstation, uploaded to PACS, and reviewed. This CT examination was performed using dose optimization techniques as appropriate, variously including the following: *Automated exposure control. *Adjustment of mA and/or kV according to patient size (this includes techniques or standardized protocols for targeted exams where dose is matched to indication/reason for exam, i.e., extremities or head). *Use of iterative reconstruction technique. Total exam dose-length product 907 mGy-cm FINDINGS: QUALITY OF STUDY/CONTRAST BOLUS: Satisfactory. PULMONARY ARTERIES: There are no filling defects in the main, lobar, or segmental pulmonary arteries to suggest pulmonary embolism. The central pulmonary arteries are normal. THORACIC Aorta: there is a normal left-sided three-vessel aortic arch. No dissection. The aorta is normal in caliber. There is no aortic dissection LUNG: No focal consolidation, suspicious nodules or masses. PLEURA: No pneumothorax. No pleural effusion. MEDIASTINUM: No evidence of septal bowing or right heart strain. The cardiomediastinal structures are unremarkable. There is no pericardial effusion. No pathologically enlarged mediastinal lymph nodes. CHEST WALL/AXILLA: No axillary or internal mammary lymphadenopathy. LIVER, GALLBLADDER, AND BILIARY TREE: Liver is homogeneous with mildly nodular contour surrounded by ascites, more prominent to the left and there is low-attenuation lesion in the medial aspect of the left lobe of the liver, measured 2.3 cm, not seen on the previous study of 2020. Gall bladder is surgically absent. There are 2 exophytic nodules measured 1.4 and 1.1 cm extending from the tip of right lobe of the liver and surrounded by ascites. There is fluid density lobulated lesion seen along the left lobe of the liver to the right with nodular contour PANCREAS: Normal size. No definite mass, surrounding fluid, or inflammatory changes. SPLEEN: Spleen surrounded by septated ascites. ADRENAL GLANDS: Normal in size; no mass. KIDNEYS AND URETERS: Right kidney revealed fullness of collecting system mild hydroureteronephrosis. Left kidney demonstrate mild. GASTROINTESTINAL TRA hydroureteronephrosis is well CT: No evidence of free fluid or free air within the abdomen. The stomach is non-distended. Non-distended loops of small bowel are identified. No evidence of colonic wall thickening or surrounding is unremarkable inflammatory changes. The appendix is not visualized; no fat stranding is noted in the expected location of the appendix. ABDOMINAL WALL: No hernias. LYMPHOVASCULAR STRUCTURES: No lymphadenopathy. The aorta is normal in caliber. There is no aortic dissection BLADDER: Not fully distended, limiting its complete evaluation. No bladder wall thickening. No focal mass or bladder calculi seen. PELVIC VISCERA: Unremarkable. OSSEOUS STRUCTURES: No acute or suspicious osseous abnormality. Mild multilevel degenerative changes of the visualized spine. CT/CT angio chest PE protocol IMPRESSION: 1. No evidence of pulmonary embolism. 2. No evidence of abdominal aortic dissection. 3. Cirrhotic liver with ascites and new lesion in the left lobe of the liver. Mildly nodular contour of ascites suggestive for neoplastic etiology. Hepatic metastatic lesions. 4. Mild bilateral hydroureteronephrosis. 5. VTE: Negative.
[2024-01-01 10:01] VITALS: BP 109/46; PULSE 88; RESP 16; TEMP 36.6; O2SAT 98; BMI 32.9
--- NOTE | 2024-01-01 10:15 | PC.NURSE ---
Pt presented to ED from home. Pt Georgian speaking only, supervisor beater room utilized. Pt reports left sided chest pain since 3 AM, worsens with movement. Pt describes as sharp and stabbing, 7/10 on movement but no pain while at rest. Pt reports cough X2 years. Pt has colon cancer, gets chemo at [facility], last chemo on Tuesday. Pt has port on right side of chest. Family at bedside. Pt alert and oriented, breathing even and unlabored, skin warm and dry. Pt resting in bed at this time. Pt on bedside waiter/waitress cocktail lounge, NSR.
--- NOTE | 2024-01-01 10:15 | ED.SOB ---
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 No fevers, chills, vomiting, diarrhea, urinary symptoms, skin rash, neck pain/back pain. Has bilateral LE swelling at baseline. Does not feel it is worsened. Unsure if weight gain. Related Data Home Medications Medication Instructions Recorded Confirmed blood sugar diagnostic #10 ea 09/11/20 04/26/23 oxycodone 10 mg tablet 10 mg PO Q6H PRN 04/09/21 04/26/23 loperamide 2 mg capsule 2 mg PO 10/20/22 04/26/23 furosemide 20 mg tablet 20 mg PO BID 12/15/22 04/26/23 Previous Rx's Medication Instructions Recorded simethicone 180 mg capsule (Gas 180 mg PO .Q.i.d. 30 days #120 caps 03/27/21 Relief (simethicone)) toilet seat elevator #1 ea 05/25/21 hospital bed #1 ea 06/01/21 wheelchair #1 ea 06/01/21 lancets (OneTouch UltraSoft 1 ea miscellaneous DAILY #100 caps 08/26/21 Lancets) amlodipine 10 mg tablet 10 mg PO DAILY #90 tabs 12/08/21 flash glucose scanning reader #1 ea 03/03/22 (FreeStyle Liliane 14 Day [place]) cholecalciferol (vitamin D3) 25 25 mcg PO DAILY 90 days #90 caps 12/15/22 mcg (1,000 unit) capsule ferrous sulfate 325 mg (65 mg 325 mg PO BID 90 days #180 tabs 01/27/23 iron) tablet albuterol sulfate 2.5 mg/3 mL 2.5 mg (3 mL) inhalation Q6H PRN 01/31/23 (0.083 %) solution for nebulization bronchospasm 30 days #360 mL empagliflozin 25 mg tablet 25 mg PO QAM #30 tabs 02/11/23 (Jardiance) dulaglutide 1.5 mg/0.5 mL 1.5 mg (0.5 mL) subcut QWEEK 90 04/26/23 subcutaneous pen injector days #6.5 mL (Trulicity) nebulizers (AeroEclipse II #1 ea 04/26/23 Nebulizer) metoprolol succinate 100 mg 100 mg PO DAILY #90 tabs 06/27/23 tablet,extended release 24 hr hydrochlorothiazide 25 mg tablet 25 mg PO QAM #90 tabs 07/24/23 blood sugar diagnostic (OneTouch 1 strip miscellaneous DAILY #100 09/19/23 Ultra Test strips) strips atorvastatin 80 mg tablet 80 mg PO BEDTIME 90 days #90 tabs 12/15/23 omeprazole 20 mg capsule,delayed 40 mg (2 x 20 mg) PO DAILY #180 12/31/23 release caps cefuroxime axetil 250 mg tablet 250 mg PO BID #14 tabs 01/01/24 oxycodone 5 mg tablet 5 mg PO Q8H PRN pain #6 tabs 01/01/24 Allergies Allergy/AdvReac Type Severity Reaction Status Date / Time iodine Allergy Severe Anaphylaxis Verified 04/26/23 15:06 metformin Allergy Intermediate Rash Verified 04/26/23 15:06 aspirin Allergy Mild rash Verified 04/26/23 15:06 gabapentin AdvReac Intermediate visual Verified 04/26/23 15:06 distubance and sleepiness Review of Systems Review of Systems: Yes all other systems are reviewed and are negative Constitutional: Constitutional: Reports no additional constitutional complaints, Denies body ache(s), Denies chills, Denies fever(s), Denies headache(s) and Denies weakness Eyes: Eyes: Reports no additional eye complaints and Denies change in vision ENT: Reports system reviewed and no additional complaints, except as documented, Denies dizziness, Denies headache(s), Denies nasal congestion, Denies nasal discharge and Denies neck pain Cardiovascular: Cardiovascular: Reports no additional cardiovascular complaints, Reports chest pain, Denies leg edema and Reports dyspnea Respiratory: Respiratory: Reports no additional respiratory complaints, Denies cough and Reports dyspnea Gastrointestinal: Gastrointestinal: Reports no additional gastrointestinal complaints, Denies abdominal pain, Denies diarrhea, Denies nausea and Denies vomiting Genitourinary: Genitourinary: Reports no additional female genitourinary complaints and Denies urinary incontinence Musculoskeletal: Musculoskeletal: Reports no additional musculoskeletal complaints, Denies back pain, Denies arthralgias, Denies joint swelling, Denies neck pain, Denies numbness and Denies tingling Integumentary/Breasts: Skin/Breast: Reports system reviewed and no additional complaints, except as docu and Denies rash Neurologic: Reports system reviewed and no additional complaints, except as documented, Denies Abnormal speech present, Denies dizziness, Denies headache(s), Denies numbness, Denies tingling and Denies weakness [facility] Past Medical History Attestation statement: The following information was validated with the patient. 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 Mother No problems noted. Paternal Grandmother Cancer Paternal Aunt Cancer Family/Other Cancer Daughter Cancer History of open heart surgery Social History Social History Household Members: None Housing: Apartment Alcohol intake: never Patient Tobacco Use Status: Never used Tobacco Smoked in Last 30 Days: No e-Cigarette/Vaping Use: Never Used Second Hand Smoke Exposure: No Use of substances other than those prescribed or required for medical reasons: No Advance Directives: No Advance Directives Information Provided: No service: No Current occupational status: unemployed and disabled Cognitive needs: Yes Hearing needs: Yes Vision needs: Yes Physical Exam Vital Signs: Vital Signs: Last Vital Signs Temp 98.2 F 01/01/24 10:48 Pulse 79 01/01/24 12:25 Resp 15 01/01/24 12:25 BP 100/43 L 01/01/24 10:48 Pulse Ox 97 01/01/24 12:25 O2 Del Method Room Air 01/01/24 12:25 BMI result Body Mass Index 32.9 Const: General: cooperative, healthy appearing, comfortable and no acute distress Orientation/consciousness: patient oriented x3 Limitations: no limitations HEENT: Head: Yes normal to inspection Ears: hearing grossly normal bilaterally General nose exam: Normal external nose present Face and sinus: Yes normal facial exam Mouth: Normal oral and palatal mucosa present Throat: Yes posterior oropharynx normal Eyes: General: appearance normal, both eyes and all related structures Pupils: Equal, round and reactive pupils present Neck: Neck: Yes normal visual inspection Chest: Chest palpation & inspection: normal inspection of the chest and tenderness (Left chest tender to palp) Resp: Effort & Inspection: normal respiratory effort Auscultation: clear to auscultation bilaterally Cardio: Rate: regular rate Rhythm: regular rhythm Peripheral pulses: Peripheral pulses 2+ throughout GI: Inspection: Yes normal to inspection Palpation (GI): Soft to palpation, Tenderness to palpation present (GI) in the LUQ; with no rebound tenderness and no guarding Auscultation: normal bowel sounds Back/Spine/Pelvis: Thoracic/Lumbar Spine: thoracic and lumbar spine normal to inspection Skin: General skin exam: no rashes or lesions noted Neuro: General: patient oriented x3, no focal motor deficits and normal sensation to monofilament Cranial nerves: Yes Equal, round and reactive pupils present Cognition (Neuro): normal cognition Speech: No Abnormal speech present Gait exam (Neuro): Normal gait present Motor exam (neuro): 5/5 motor strength present throughout Extrem: General: Yes normal to inspection Course Course Course Narrative: 1200-labs show chronic microcytic anemia, chronic kidney disease, mild hyperglycemia, mildly elevated BNP with flat troponin and nonischemic EKG. Chest x-ray shows no acute findings. In the settings of this patient who has an underlying history of malignancy currently receiving treatment with pleuritic chest pain I have a high suspicion for PE. Patient will need CTA to rule this out. She does have a history of an allergy to iodine. She tells me that all of her care has been [facility] and she is had more than 2 CT scans with IV contrast with no difficulty or pre medication required. I spoke to our CT department. We will be overly cautious and medicate the patient with both Benadryl and Solu-Medrol prior to CT scan. Will attempt to get records from [facility]. This was done in conjunction with the patient and the chair and couch maker with shared decision making Reevaluation(s) Reevaluation #1: The medical record department at [facility] is currently closed as it is the weekend. I did speak to the charge nurse (Bruna) in the emergency room who was able to confirm that the patient has had at least 3 CT scans with IV contrast 1 on December 08, 1 on June 30. Reevaluation #2: 1345-UA is consistent with a UTI. At this time infection is suspected. Antibiotics ordered. Reevaluation #3: 1600 CT shows IMPRESSION: 1. No evidence of pulmonary embolism. 2. No evidence of abdominal aortic dissection. 3. Cirrhotic liver with ascites and new lesion in the left lobe of the liver. Mildly nodular contour of ascites suggestive for neoplastic etiology. Hepatic metastatic lesions. 4. Mild bilateral hydroureteronephrosis. 5. VTE: Negative. Reviewed findings with patient and family at bedside. Aware of new liver lesion. Pain is well controlled. Family requesting pain medication for home if needed. In setting of metastatic disease in this elderly patient I am willing to prescribe a short course of oxycodone. Patient is tolerating p.o.. No CVA tenderness to suggest pyelonephritis. Patient be discharged home with antibiotic. Reviewed worrisome signs and symptoms of when to return to the emergency room. Comfortable plan for discharge home. Medications Administered Discontinued Medications Generic Name Dose Route Start Last Admin Trade Name Freq PRN Reason Stop Dose Admin Diphenhydramine HCl 50 mg 01/01/24 12:02 01/01/24 12:08 Diphenhydramine Hcl 50 Mg/Ml Vial IVPUSH 01/01/24 12:03 50 mg ONCE ONE Administration Sodium Chloride 500 mls @ 999 mls/hr 01/01/24 11:46 01/01/24 13:26 Ns IV 01/01/24 12:16 Infused .Q31M STA Infusion Ceftriaxone Sodium 1 gm/ 50 mls @ 100 mls/hr 01/01/24 13:42 01/01/24 14:28 Sodium Chloride IV 01/01/24 14:11 Infused ONCE ONE Infusion Iohexol 100 ml 01/01/24 14:01 01/01/24 14:02 Iohexol 350 Mg/Ml 100 Ml Infus..Btl IV 01/01/24 14:02 85 ml ONCE ONE Administration Methylprednisolone Sodium Succinate 125 mg 01/01/24 12:02 01/01/24 12:07 Methylprednisolone Sod Succ 125 Mg/2 Ml Vial IVPUSH 01/01/24 12:03 125 mg ONCE ONE Administration Morphine Sulfate 2 mg 01/01/24 10:21 01/01/24 11:40 Morphine Sulfate 4 Mg/Ml Cartridge IVPUSH 01/01/24 10:22 2 mg ONCE ONE Administration Protocol Ondansetron HCl 4 mg 01/01/24 10:21 01/01/24 11:39 Ondansetron Hcl 4 Mg/2 Ml Vial IVPUSH 01/01/24 10:22 4 mg ONCE ONE Administration Medical Decision Making Medical Decision Making [facility] Narrative: 78yo female with history of colon cancer receiving weekly chemotherapy at [facility] (Dr [place]), CHF, HTN, HLD, DM here with complaints of left sided chest pain/abdominal pain worsened with deep breathing and SOB since 3am. No fevers, chills, vomiting, diarrhea, urinary symptoms, skin rash, neck pain/back pain. Has bilateral LE swelling at baseline. Does not feel it is worsened. Unsure if weight gain. Left sided chest pain with tenderness to palp, worsened with inspiration, LUQ TTP VSS Will obtain labs, EKG, CXR, viral testing Will provide analgesia Differential Diagnosis Differential Diagnoses: The differential diagnosis associated with the presentation includes PNA, PE, CHF, ACS, UTI Low suspicion for renal colic, pyelonephritis Admission/Observation Consideration of admission/observation: Escalation of care including admission/observation considered UA is consistent with UTI, patient is afebrile, no white count, nontoxic, no evidence of pyelonephritis or renal colic on exam warranting admission with IV antibiotics Lab Data [facility] Lab Attestation statement: I reviewed the patient's lab results. 01/01/24 11:07 01/01/24 11:07 Labs: Lab Results 01/01/24 01/01/24 Range/Units 11:07 13:32 WBC 7.6 (4.8-10.8) X10*3/uL RBC 3.38 L (4.20-5.50) X10*6/uL Hgb 9.2 L (12.0-16.0) g/dl Hct 29.4 L (37.0-47.0) % MCV 87.0 (80.0-98.0) fL MCH 27.2 (27.0-33.0) pg MCHC 31.3 (31.0-35.0) g/dl RDW 17.1 H (11.0-16.0) % Plt Count 366 (160-400) X10*3/uL MPV 8.9 L (9.4-12.3) fL Immature Gran % (Auto) 0.5 H (0.0-0.4) % Neut % (Auto) 63.6 (45-73) % Lymph % (Auto) 22.8 (20-40) % [place] % (Auto) 11.2 H (2-11) % Eos % (Auto) 1.4 (0-4) % Baso % (Auto) 0.5 (0-2) % Lymph # (Auto) 1.7 (1.2-4.9) X10*3/uL [place] # (Auto) 0.9 (0.1-1.2) X10*3/uL Eos # (Auto) 0.1 (0.0-0.4) X10*3/uL Baso # (Auto) 0.0 (0.0-0.2) X10*3/uL Abs Immat Gran (auto) 0.04 H (0.00-0.03) X10*3/uL Absolute Neuts (auto) 4.8 (2.0-8.3) x10*3/uL Absolute Nucleated RBC 0.000 (0.0-0.012) X10*3/uL Nucleated RBC % (auto) 0.0 (0.0-0.2) /100WBC PT 13.6 H (11.1-13.3) SEC INR 1.1 (0.9-1.1) Sodium 139 (135-145) mmol/L Potassium 3.7 (3.3-5.1) mmol/L Chloride 105 (96-108) mmol/L Carbon Dioxide 25 (22-29) mmol/L Anion Gap 13 (12-20) BUN 15 (9-16) mg/dL Creatinine 1.46 H (0.5-1.4) mg/dL Estim Creat Clear Calc 30.3 Estimated GFR 34 Random Glucose 151 H (60-115) mg/dL Lactic Acid 1.1 (0.5-2.0) mmol/L Calcium 8.7 (8.4-10.2) mg/dL Magnesium 1.9 (1.6-2.6) mg/dL Total Bilirubin 1.0 (0.0-1.0) mg/dL Direct Bilirubin 0.4 (0.0-0.5) mg/dL AST 17 (5-31) U/L ALT 8 (0-31) U/L Alkaline Phosphatase 78 (39-117) U/L Troponin I High Sens 3.4 (<3.5-17.0) ng/L B-Natriuretic Peptide 243 H (<100) pg/mL Total Protein 5.9 L (6.5-8.0) g/dL Albumin 3.0 L (3.5-5.0) g/dL Urine Color Yellow Urine Appearance Clear Urine pH 6.0 (5.0-9.0) Ur Specific [place] 1.010 (1.005-1.025) Urine Protein Negative (Neg-Trace) mg/dL Urine Glucose (UA) >=1000 H (Negative) mg/dL Urine Ketones Negative (Negative) mg/dL Urine Blood Negative (Negative) Urine Nitrite Positive H (Negative) Ur Leukocyte Esterase Moderate (2+) H (Negative) Urine RBC 0-2 (0-2) /HPF Urine WBC >50 H (0-5) /HPF Ur Squamous Epith Cells 0-2 (0-2) /HPF Urine Bacteria 4+ (None Seen) Hyaline Casts 0-2 (0-2) /LPF Influenza Type A (PCR) NEGATIVE (Negative) Influenza Type B (PCR) NEGATIVE (Negative) RSV RNA Qual (PCR) NEGATIVE (Negative) SARS-CoV-2 RNA (RT-PCR) NEGATIVE (Negative) Independent Interpretation I performed an independent interpretation of an: EKG, Plain X-Ray and CT Scan Interpretation: I independently reviewed the ct scan and agree with the rad report I independently reviewed the EKG which shows normal sinus rhythm with a rate of 80, normal [place], normal QRS, or QT Radiology Impression Discussion of test interpretation with radiology: I have reviewed the radiologist's reading. Radiologist Impression: [address] [address] [address] Scan Report Signed Patient: Jasmin Whitfield MR#: [id number] : 1945 Acct:[id number] Age/Sex: 78 / F ADM Date: 01/01/24 Loc: HO.ED Attending Dr: Ordering Physician: Kelly Coker NP Date of Service: 01/01/24 Procedure(s): CT angio chest PE protocol Accession Number(s): [id number] cc: Nelli Richardson MD; Kelly Coker NP~ EXAMINATION: CT angio chest PE protocol, CT abdomen pelvis w IV con INDICATION: 16-year-old female with a history of colon cancer rule out pulmonary embolism, pleuritic chest pain COMPARISON: CT of chest and abdomen from 02/19/2021 TECHNIQUE: Prior to contrast administration, noncontrast localization images were obtained. Subsequently, multidetector volumetric imaging was performed from the thoracic inlet to below the pubis symphysis following the administration of 85 mL Omnipaque 350 intravenous contrast. No contrast reaction reported Sagittal, coronal, and MIP oblique sagittal reformatted images were obtained on the CT workstation, uploaded to PACS, and reviewed. This CT examination was performed using dose optimization techniques as appropriate, variously including the following: *Automated exposure control. *Adjustment of mA and/or kV according to patient size (this includes techniques or standardized protocols for targeted exams where dose is matched to indication/reason for exam, i.e., extremities or head). *Use of iterative reconstruction technique. Total exam dose-length product 907 mGy-cm FINDINGS: QUALITY OF STUDY/CONTRAST BOLUS: Satisfactory. PULMONARY ARTERIES: There are no filling defects in the main, lobar, or segmental pulmonary arteries to suggest pulmonary embolism. The central pulmonary arteries are normal. THORACIC Aorta: there is a normal left-sided three-vessel aortic arch. No dissection. The aorta is normal in caliber. There is no aortic dissection LUNG: No focal consolidation, suspicious nodules or masses. PLEURA: No pneumothorax. No pleural effusion. MEDIASTINUM: No evidence of septal bowing or right heart strain. The cardiomediastinal structures are unremarkable. There is no pericardial effusion. No pathologically enlarged mediastinal lymph nodes. CHEST WALL/AXILLA: No axillary or internal mammary lymphadenopathy. LIVER, GALLBLADDER, AND BILIARY TREE: Liver is homogeneous with mildly nodular contour surrounded by ascites, more prominent to the left and there is low-attenuation lesion in the medial aspect of the left lobe of the liver, measured 2.3 cm, not seen on the previous study of 2020. Gall bladder is surgically absent. There are 2 exophytic nodules measured 1.4 and 1.1 cm extending from the tip of right lobe of the liver and surrounded by ascites. There is fluid density lobulated lesion seen along the left lobe of the liver to the right with nodular contour PANCREAS: Normal size. No definite mass, surrounding fluid, or inflammatory changes. SPLEEN: Spleen surrounded by septated ascites. ADRENAL GLANDS: Normal in size; no mass. KIDNEYS AND URETERS: Right kidney revealed fullness of collecting system mild hydroureteronephrosis. Left kidney demonstrate mild. GASTROINTESTINAL TRA hydroureteronephrosis is well CT: No evidence of free fluid or free air within the abdomen. The stomach is non-distended. Non-distended loops of small bowel are identified. No evidence of colonic wall thickening or surrounding is unremarkable inflammatory changes. The appendix is not visualized; no fat stranding is noted in the expected location of the appendix. ABDOMINAL WALL: No hernias. LYMPHOVASCULAR STRUCTURES: No lymphadenopathy. The aorta is normal in caliber. There is no aortic dissection BLADDER: Not fully distended, limiting its complete evaluation. No bladder wall thickening. No focal mass or bladder calculi seen. PELVIC VISCERA: Unremarkable. OSSEOUS STRUCTURES: No acute or suspicious osseous abnormality. Mild multilevel degenerative changes of the visualized spine. CT/CT angio chest PE protocol IMPRESSION: 1. No evidence of pulmonary embolism. 2. No evidence of abdominal aortic dissection. 3. Cirrhotic liver with ascites and new lesion in the left lobe of the liver. Mildly nodular contour of ascites suggestive for neoplastic etiology. Hepatic metastatic lesions. 4. Mild bilateral hydroureteronephrosis. 5. VTE: Negative. [address] [address] XRay Report Signed Patient: Jasmin Whitfield MR#: [id number] : 1945 Acct:[id number] Age/Sex: 78 / F ADM Date: 01/01/24 Loc: HO.ED Attending Dr: Ordering Physician: Kelly Coker NP Date of Service: 01/01/24 Procedure(s): XR chest 2V Accession Number(s): [id number] cc: Nelli Richardson MD; Kelly Coker NP~ EXAMINATION: XR CHEST CLINICAL INFORMATION: Chest pain COMPARISON: CT chest 02/19/2021, chest radiograph 05/31/2018 TECHNIQUE: 2 views of the chest were obtained. FINDINGS: Lungs are hypoexpanded and allowing for this, no significant abnormality is noted involving the heart, lungs, mediastinum, bony thorax or soft tissues. A right chest wall internal jugular port is present with its tip near the SVC RA junction. Mild degenerative changes are present in the spine. XR/XR chest 2V IMPRESSION: No acute intrathoracic disease. Independent Historian Clinical information obtained from an independent historian. History obtained from or confirmed by: Friend Prescription Management I considered prescription management with: Antibiotic Discharge Plan Discharge Clinical Impression: Chest pain, Acute UTI, Lesion of liver Patient Disposition: Home, Self-Care Instructions: Chest Pain (ED), Urinary Tract Infection in Women (ED) Additional Instructions: Please follow-up with your outpatient providers Please return for any worsening symptoms (worsening pain, fever or vomiting) Your ct scan shows new lesions on your liver that are concerning for a your cancer spreading. we recommend you follow-up with your oncologist at [facility] for this. Alfredito un seguimiento con derik proveedores ambulatorios. Por favor regrese si los s?ntomas empeoran (empeoramiento del dolor, fiebre o v?mitos). Medina tomograf?a computarizada muestra nuevas lesiones en medina h?gado que son preocupantes por la propagaci?n del c?ncer. le recomendamos kesha seguimiento con medina onc?logo a jorge de esto. Prescriptions: New cefuroxime axetil 250 mg tablet 250 mg PO BID Qty: 14 0RF oxycodone 5 mg tablet 5 mg PO Q8H PRN (Reason: pain) Qty: 6 0RF Rx Instructions: Partial Fill upon patient request. No Action ([facility]) hospital bed Kit See Rx Instructions .ROUTE .MEDSUPPLY Qty: 1 0RF Rx Instructions: As directed ([facility]) wheelchair See Rx Instructions .Route .MEDSUPPLY Qty: 1 0RF Rx Instructions: As directed lancets [OneTouch UltraSoft Lancets] [facility] 1 ea miscellaneous DAILY Qty: 100 9RF ferrous sulfate 325 mg (65 mg iron) tablet 325 mg PO BID 90 Days Qty: 180 2RF albuterol sulfate 2.5 mg /3 mL (0.083 %) solution for nebulization 2.5 mg inhalation Q6H PRN (Reason: bronchospasm) 30 Days Qty: 360 0RF Jardiance 25 mg tablet 25 mg PO QAM Qty: 30 6RF metoprolol succinate 100 mg tablet extended release 24 hr 100 mg PO DAILY Qty: 90 2RF hydrochlorothiazide 25 mg tablet 25 mg PO QAM Qty: 90 1RF NommunityTouch Ultra Test Strip 1 strip miscellaneous DAILY Qty: 100 9RF atorvastatin 80 mg tablet 80 mg PO BEDTIME 90 Days Qty: 90 1RF omeprazole 20 mg capsule,delayed release(DR/EC) 40 mg PO DAILY Qty: 180 0RF oxycodone 10 mg tablet 10 mg PO Q6H PRN (DME) toilet seat elevator See Rx Instructions .Route .MEDSUPPLY Qty: 1 0RF Rx Instructions: As directed ([facility]) nebulizers [AeroEclipse II Nebulizer] [facility] See Rx Instructions .Route Qty: 1 0RF Rx Instructions: As directed Trulicity 1.5 mg/0.5 mL pen injector 1.5 mg subcut QWEEK 90 Days Qty: 6.5 3RF (DME) FreeStyle Liliane 14 Day [place] [facility] See Rx Instructions .Route Qty: 1 0RF Rx Instructions: As directed furosemide 20 mg tablet 20 mg PO BID cholecalciferol (vitamin D3) 25 mcg (1,000 unit) capsule 25 mcg PO DAILY 90 Days Qty: 90 3RF simethicone [Gas Relief (simethicone)] 180 mg capsule 180 mg PO .Q.i.d. 30 Days Qty: 120 6RF (DME) NommunityTouch Ultra Blue Test Strip Strip See Rx Instructions .ROUTE DAILY Qty: 10 Rx Instructions: As directed loperamide 2 mg capsule 2 mg PO amlodipine 10 mg tablet 10 mg PO DAILY Qty: 90 3RF Referrals: Nelli Richardson MD [Primary Care Provider] - 1 week Print Language: English
--- NOTE | 2024-01-01 10:22 | ECG_ITS ---
Test Reason : CP Blood Pressure : / mmHG Vent. Rate : 080 BPM Atrial Rate : 080 BPM P-R Int : 154 ms QRS Dur : 080 ms QT Int : 392 ms P-R-T Axes : 032 -07 031 degrees QTc Int : 452 ms Normal sinus rhythm Minimal voltage criteria for LVH, may be normal variant ( R in aVL ) Cannot rule out Anterior infarct , age undetermined Abnormal ECG When compared with ECG of 19-FEB-2021 13:18, No significant change was found Referred By: Kelly Hernandez Electronically Signed By:DIO ZEE
[2024-01-01 10:48] VITALS: BP 100/43; PULSE 83; RESP 20; TEMP 36.8; O2SAT 99
[2024-01-01 11:14] LABS: MANUAL DIFF FLAG NO
[2024-01-01 11:19] LABS: Basophils Percent Auto 0.5 % (0-2); Eosinophils Absolute Auto 0.1 X10*3/uL (0.0-0.4); Eosinophils Percent Auto 1.4 % (0-4); Hematocrit 29.4 % (37.0-47.0); Hemoglobin 9.2 g/dl (12.0-16.0); Imm Gran Abs Auto 0.04 X10*3/uL (0.00-0.03); Imm Gran Pct Auto 0.5 % (0.0-0.4); Lymphocytes Absolute Auto 1.7 X10*3/uL (1.2-4.9); Lymphocytes Percent Auto 22.8 % (20-40); Mean Corpuscular HGB Conc 31.3 g/dl (31.0-35.0); Mean Corpuscular Hemoglobin 27.2 pg (27.0-33.0); Mean Platelet Volume 8.9 fL (9.4-12.3); Monocytes Absolute Auto 0.9 X10*3/uL (0.1-1.2); Monocytes Percent Auto 11.2 % (2-11); Neutrophils Absolute Auto 4.8 x10*3/uL (2.0-8.3); Neutrophils Percent Auto 63.6 % (45-73); Platelet Count 366 X10*3/uL (160-400); Red Blood Count 3.38 X10*6/uL (4.20-5.50); Red Cell Distribution Width 17.1 % (11.0-16.0); White Blood Count 7.6 X10*3/uL (4.8-10.8)
[2024-01-01 11:22] LABS: INTERNATIONAL NORM RATIO 1.1 (0.9-1.1); Prothrombin Time 13.6 SEC (11.1-13.3)
[2024-01-01 11:27] LABS: Lactic Acid 1.1 mmol/L (0.5-2.0)
[2024-01-01 11:32] LABS: Alanine Aminotransferase 8 U/L (0-31); Alkaline Phosphatase 78 U/L (39-117); Anion Gap 13 (12-20); Aspartate Amino Transferase 17 U/L (5-31); Bilirubin Direct 0.4 mg/dL (0.0-0.5); Blood Urea Nitrogen 15 mg/dL (9-16); Calcium 8.7 mg/dL (8.4-10.2); Carbon Dioxide 25 mmol/L (22-29); Chloride 105 mmol/L (96-108); Creatinine Clr Calc Pharmacy 30.3; Estimated Glomerular Filt Rate 34; Glucose Random 151 mg/dL (60-115); Magnesium 1.9 mg/dL (1.6-2.6); Potassium 3.7 mmol/L (3.3-5.1); Sodium 139 mmol/L (135-145); Total Protein 5.9 g/dL (6.5-8.0)
--- NOTE | 2024-01-01 11:33 | PC.NURSE ---
Chest x ray showing port is not a power port. Provider aware stating okay not to access port and to place 20g IV.
[2024-01-01 11:37] LABS: B Type Natriuretic Peptide 243 pg/mL (<100); Troponin-I High Sensitivity 3.4 ng/L (<3.5-17.0)
[2024-01-01] MEDS: ondansetron HCL 4 MG/2 ML VIAL IVPUSH (11:39)
[2024-01-01 11:40] VITALS: RESP 20
[2024-01-01] MEDS: Morphine Sulfate 4 MG/ML CARTRIDGE 2 MG IVPUSH (11:40)
[2024-01-01 11:53] LABS: Influenza A PCR NEGATIVE (Negative); Influenza B PCR NEGATIVE (Negative); Resp Syncy Virus RNA Qual PCR NEGATIVE (Negative); SARS COV2 PCR INHOUSE NEGATIVE (Negative)
[2024-01-01] MEDS: 0.9 % Sodium Chloride 500 ML 999 ML IV (12:00)
[2024-01-01] MEDS: methylPREDNISolone Sod Succ 125 MG/2 ML VIAL IVPUSH (12:07)
[2024-01-01] MEDS: diphenhydrAMINE HCL 50 MG/ML VIAL IVPUSH (12:08)
[2024-01-01 12:25] VITALS: PULSE 79; RESP 15; O2SAT 97
[2024-01-01 13:40] LABS: Appearance Urine Clear; Color Urine Yellow; Glucose Urine UA >=1000 mg/dL (Negative); Leukocyte Esterase Urine Moderate (2+) (Negative); Nitrite Urine Positive (Negative); UMIC TRIGGER UACC YES; Urine Blood Negative (Negative); Urine Ketones Negative (Negative); Urine Protein Negative (Neg-Trace)
--- NOTE | 2024-01-01 13:41 | PC.NURSE ---
Pt reports pain in left chest is 8/10, no relief from the morphine. Pt taken to CT scan.
[2024-01-01 13:43] LABS: Bacteria Urine 4+ (None Seen); Hyaline Casts Urine 0-2 /LPF (0-2); RBC Urine 0-2 /HPF (0-2); Squamous Epithelial Cell Urine 0-2 /HPF (0-2); UACC Culture Trigger YES; WBC Urine >50 /HPF (0-5)
[2024-01-01] MEDS: cefTRIAXone sodium 1 GM in 0.9 % Sodium Chloride 50 ML IV (13:54)
[2024-01-01] MEDS: iohexoL 350 MG/ML 100 ML INFUS..BTL IV (14:02)
[2024-01-01 16:13] VITALS: BP 149/64; PULSE 82; RESP 18; TEMP 36.5; O2SAT 98
== END 2024-01-01 16:24 | disposition home or self-care (01) ==
PROVIDERS: Nurse Practitioner Family; Emergency Provider Emergency Medicine; PCP Internal Medicine
DX: R07.89 Other chest pain (principal); N39.0 Urinary tract infection, site not specified; R06.02 Shortness of breath; R60.0 Localized edema; K76.9 Liver disease, unspecified; Z11.52 Encounter for screening for COVID-19; Z20.822 Contact with and (suspected) exposure to COVID-19; Z79.899 Other long term (current) drug therapy
CPT/HCPCS: 0241U; 36415; 71046; 71275; 74177; 80048; 80076; 81001; 83605; 83735; 83880; 84484; 85025; 85610; 87040; 87086; 87088; 87186; 93005; 96361; 96365; 96375; 99284; 99285; J0696; J1200; J2270; J2405; J2930; Q9967

== ENCOUNTER → 2024-01-01 10:22 | Outpatient (BNV) | payer OTHER, SELFPAY | PROVIDERS: Emergency Provider Emergency Medicine; PCP Internal Medicine; Visit Provider Internal Medicine | DX: R06.02 Shortness of breath (principal) | CPT/HCPCS: 93010 ==